=== PATIENT | female | born 1965 | race Hispanic/Latino ===

== ENCOUNTER 2019-09-28 13:06 | Emergency (ER) | payer OTHER, SELFPAY ==
--- NOTE | ~2019-09-28 | CT_ITS ---
EXAMINATION: CTA chest PE protocol DATE: 09/28/2019 15:48 CDT INDICATION: Chest pain TECHNIQUE: Computed tomographic angiography (CTA) of the chest was performed with 100 mL Omnipaque-35 0 intravenous contrast. The dose-length product was 223.66 mGy-cm. Maximum intensity projection 3D-re constructions of the aorta and other arteries were constructed by the technologist on a separate work station. Automated exposure control and iterative reconstruction technique were employed. COMPARISON: Chest dated 09/28/2019 FINDINGS: Study technically limited by timing of contrast bolus and significant motion artifact for e valuation of segmental and subsegmental pulmonary arteries. No large central pulmonary embolism is id entified. No significant pleural or pericardial effusion. Heart size normal. No thoracic lymphadenopa thy. Small subcentimeter hypodensity right hepatic lobe, most likely benign. There is dependent atele ctasis. No endobronchial lesions. Calcified granuloma right upper lobe. No focal airspace consolidati on to suggest pneumonia. No noncalcified pulmonary nodules identified. IMPRESSION: 1. No large central pulmonary embolism. Study is technically limited for evaluation of segmental and subsegmental pulmonary arteries. 2: No acute cardiopulmonary disease. Reviewed, dictated and finalized at location A. IMPRESSION: 1. No large central pulmonary embolism. Study is technically limited for evalua tion of segmental and subsegmental pulmonary arteries. 2: No acute cardiopulmonary disease.
--- NOTE | ~2019-09-28 | XR_ITS ---
EXAMINATION: XR chest 1V portable DATE: 09/28/2019 13:26 INDICATION: Cough and shortness of breath. TECHNIQUE: A single frontal view of the chest was obtained. COMPARISON: Chest 2 views 06/16/2019 FINDINGS: A calcified right lung nodule is consistent with old granulomatous disease. No pleural effu viktor or pneumothorax. The heart size is normal. IMPRESSION: 1. No acute cardiopulmonary disease. Reviewed, dictated and finalized at location A.
[2019-09-28 13:10] VITALS: PULSE 92; RESP 20; TEMP 36.8
--- NOTE | 2019-09-28 13:14 | ECG_ITS ---
Measurements Intervals [place] Rate: 89 P: 38 TN: 140 QRS: -26 QRSD: 82 T: -12 QT: 360 QTc: 439 Interpretive Statements SINUS RHYTHM LOW QRS VOLTAGE IN PRECORDIAL LEADS VOLTAGE CRITERIA FOR LVH DELAYED PRECORDIAL R/S TRANSITION BORDERLINE T WAVE ABNORMALITY- INFERIOR LEADS BORDERLINE ECG Electronically Signed On 09-28-2019 13:32:50 CDT by Chad Warren D.O.
--- NOTE | 2019-09-28 13:23 | ED.CHESTPAIN ---
HPI - Chest Pain General Chief Complaint: Chest Pain Stated Complaint: Chest Pain Time Seen by Provider: 09/28/19 13:08 Source: RN notes reviewed History of Present Illness HPI narrative: Patient presents emergency department from home for chest pain. Patient states that she has been having lower midsternal chest pain throughout the day today. The pain is described as aching in nature. States associated with a cough that has been nonproductive that began 3 days ago. States pain is worse with cough and deep inspiration. Denies any fevers or chills shortness of breath abdominal pain nausea vomiting or any other symptoms. Denies any previous cardiac history Related Data Allergies Allergy/AdvReac Type Severity Reaction Status Date / Time No Known Allergies Allergy Verified 09/28/19 13:15 Review of Systems Review of Systems: Narrative: Gen.: Denies fevers or chills Eyes: Denies eye pain or visual change ENT: Denies congestion Respiratory: Denies shortness of breath reports cough CV: Reports chest pain GI: Denies abdominal pain nausea, emesis or diarrhea denies burning, urgency, frequency or hematuria Musculoskeletal: Denies back pain or muscle pain Neuro: Denies numbness, tingling, weakness or focal weakness Skin: Denies rash Except as documented, all other systems reviewed and negative [facility] Past Medical History Medical History No significant past medical history Surgical History Surgical History (Updated 08/08/19 @ 10:55 by Joi Zuniga) History of section History of tonsillectomy Social History Social History Smoking status: Never smoker Substance use: never Exam Narrative: Exam Narrative: APPEARANCE: No acute distress, nontoxic, resting in bed EYES: EOMI HEENT: Normocephalic, atraumatic, OMM RESPIRATORY: No respiratory distress Clear to auscultation bilaterally with no rhonchi wheezing or rales. CARDIOVASCULAR: Regular rate and rhythm without murmurs rubs or gallops. Chest: Tender palpation over the bilateral lower midsternal chest, pain increased with deep inspiration and coughing ABDOMINAL: Soft, nontender, nondistended, no rebound or guarding MUSCULOSKELETAl: Moves all extremities. No clubbing, cyanosis or edema. NEURO: Awake and alert. Following commands, speech normal, no focal deficits SKIN:: Warm, dry. No rashes lesions or abrasions PSYCHIATRIC: Normal affect/mood, Course Course Emergency Course: Patient states pain is improved following medication Discussed with patient results of workup and diagnosis. Discussed need for follow-up with primary care, proper use of medication, and reasons to return to the emergency department. Patient understands and agrees to current treatment plan. Discussed with patient she would like tested for COVID. Feel the patient is low risk as she has had no fever CT scan is negative will obtain treatment and patient self isolate at home Vital Signs Vital signs: Vital Signs Temperature 98.3 F 09/28/19 13:10 Pulse Rate 92 09/28/19 13:10 Respiratory Rate 20 09/28/19 13:10 Temperature 98.3 F 09/28/19 13:10 Pulse Rate 95 09/28/19 17:17 Respiratory Rate 18 09/28/19 17:17 Blood Pressure 111/72 09/28/19 17:17 Pulse Oximetry 99 09/28/19 15:25 MDM - Chest Pain MDM Narrative Medical decision making narrative: Patient's EKGs and labs are without significant high risk changes. Cardiac risk factors reviewed. Patient is felt likely low risk for ACS and reasonable for further risk stratification testing as an outpatient. Pain was not sudden or maximal in onset without tearing or ripping quality. No other signs of symptoms suggest aortic dissection. A low-risk Wells criteria is noted, PE is felt to be unlikely. No pneumonia seen on evaluation today. Patient is felt to be a reasonable candidate for continued evaluation as an outpat
[2019-09-28] MEDS: KETOROLAC 30 MG/ML VIAL (*BKC) IV PUSH (13:31)
[2019-09-28 14:02] LABS: Basophils Absolute Auto 0.1 K/mm3 (0.0-0.1); Eosinophils Absolute Auto 0.2 K/mm3 (0-0.3); Eosinophils Percent Auto 1.8 % (0-4.4); Hematocrit 41.6 % (37.0-47.0); Hemoglobin 13.6 g/dL (12.0-15.0); Immature Granulocyte Absolute 0.02 K/mm3 (0.00-0.031); Immature Granulocyte Percent A 0.2 % (0-0.5); Lymphocytes Absolute Auto 2.89 K/mm3 (0.9-3.2); Lymphocytes Percent Auto 35.2 % (18.3-44.2); Mean Corpuscular HGB Conc 32.7 g/dl (32-36); Mean Corpuscular Hemoglobin 29.6 pg (26-34); Mean Corpuscular Volume 90.6 fl (80-100); Mean Platelet Volume 10.7 fl (7.4-10.4); Monocytes Absolute Auto 0.7 K/mm3 (0.1-0.6); Monocytes Percent Auto 8.5 % (2.6-8.5); Neutrophils Absolute Auto 4.4 K/mm3 (1.3-6.7); Neutrophils Percent Auto 53.3 % (45.5-73.1); Platelet Count Result 332 k/mm3 (150-375); Red Blood Count 4.59 M/mm3 (4.2-5.4); Red Cell Distribution Width 12.6 % (11.5-14.5); White Blood Count 8.2 K/mm3 (4.5-10.0)
[2019-09-28 14:12] LABS: INR 0.9; Prothrombin Time 12.3 Seconds (11.1-14.7)
[2019-09-28 14:15] LABS: Alanine Aminotransferase 22 U/L (4-35); Albumin Level 4.6 g/dL (3.5-5.1); Alkaline Phosphatase 96 U/L (38-126); Aspartate Amino Transferase 25 U/L (14-36); Bilirubin,Total 0.5 mg/dL (0.2-1.3); Blood Urea Nitrogen 12 mg/dL (7-17); Calcium 9.1 mg/dL (8.4-10.2); Carbon Dioxide 27 mmol/L (22-30); Chloride 103 mmol/L (98-107); Estimated CRCL calculation 92 ml/min; Estimated Glomerular Filt Rate > 60; Glucose 96 mg/dL (65-105); Lactic Acid Reflex 1.3 mmol/L (0.7-2.1); Sodium 137 mmol/L (137-145)
[2019-09-28 14:27] LABS: D Dimer 0.27 ug/mL (<0.48); Troponin I < 0.012 ng/mL (0.000-0.034)
[2019-09-28] MEDS: methylPREDNISolone SOD SUCC 125 MG VIAL IV PUSH (14:39)
[2019-09-28] MEDS: ALBUTEROL SULFATE NEB 2.5 MG/0.5 ML INH 5 MG INHALATION (14:51)
[2019-09-28 14:52] VITALS: PULSE 74; RESP 15
[2019-09-28] MEDS: IPRATROPIUM BR 0.02% INH SOLN 0.5 MG/2.5 ML VIAL INHALATION (14:52)
[2019-09-28 14:57] VITALS: PULSE 81; RESP 18
[2019-09-28] MEDS: MORPHINE SULFATE 2 MG/ML INJ IV PUSH (15:24)
[2019-09-28 15:25] VITALS: BP 114/73; PULSE 87; RESP 20; O2SAT 99
[2019-09-28 17:03] LABS: Troponin I < 0.012 ng/mL (0.000-0.034)
[2019-09-28 17:17] VITALS: BP 111/72; PULSE 95; RESP 18
[2019-09-29 08:04] LABS: SARS-CoV-2 RNA PCR Negative
== END 2019-09-28 17:20 | disposition home or self-care (01) ==
PROVIDERS: Emergency Provider Emergency Medicine; PCP Registered Nurse
DX: R07.89 Other chest pain (principal); J06.9 Acute upper respiratory infection, unspecified; Z20.828 Contact with and (suspected) exposure to other viral communicable diseases; R94.31 Abnormal electrocardiogram [ECG] [EKG]
CPT/HCPCS: 36415; 71045; 71275; 80053; 83605; 84484; 85025; 85380; 85610; 85730; 87040; 87635; 87804; 93005; 94640; 96374; 96375; 99284; A9270; C9803; J1885; J2270; J2930; Q9967; U0003

== ENCOUNTER 2020-03-31 12:26 | Emergency (ER) | payer OTHER, SELFPAY ==
[2020-03-31] VITALS (8 sets, daily range): BP systolic 112–122; BP diastolic 81–105; PULSE 72–85; RESP 12–20; TEMP 36.3; O2SAT 96–100
--- NOTE | ~2020-03-31 | XR_ITS ---
EXAMINATION: XR knee RT 3V DATE: 03/31/2020 13:21 INDICATION: Right knee pain TECHNIQUE: Three views of the right knee were obtained. COMPARISON: None. FINDINGS: Alignment is normal. No fracture or osteochondral lesion. Mild irregularity at the tibial s pine is likely chronic given the absence of a joint effusion. There is mild tricompartmental osteoart hritis characterized by tiny marginal osteophytes. There is mild medial soft tissue swelling of the k nee. IMPRESSION: 1. No acute osseous abnormality. Reviewed, dictated and finalized at location A. SCAN TECHNICIAN
[2020-03-31] MEDS: HYDROcodone/acetaminophen (*CRX) 7.5-325 MG TABLET 1 TAB PO (12:59)
--- NOTE | 2020-03-31 13:00 | ED.GENADULT ---
HPI - General Adult General Chief complaint: Extremity Injury, Lower <Richie Hart PA-C - Last Filed: 03/31/20 14:04> Stated complaint: Fall, possible knee dislocation <Richie Hart PA-C - Last Filed: 03/31/20 14:04> Time Seen by Provider: 03/31/20 12:31 <Richie Hart PA-C - Last Filed: 03/31/20 14:04> Source: patient and family <Richie Hart PA-C - Last Filed: 03/31/20 14:04> Mode of arrival: ambulatory <Richie Hart PA-C - Last Filed: 03/31/20 14:04> Limitations: no limitations <Richie Hart PA-C - Last Filed: 03/31/20 14:04> History of Present Illness HPI narrative: Patient is a 54-year-old female who presents with right knee injury patient was getting into a truck when she fell onto the right knee has since had swelling and pain of the knee with inability to bear weight patient denies similar occurrence in the past or other injuries or complaints presents per private <Richie Hart PA-C - Last Filed: 03/31/20 14:04> Related Data Allergies/adverse reactions: Allergies Allergy/AdvReac Type Severity Reaction Status Date / Time No Known Allergies Allergy Verified 09/28/19 13:15 <Richie Hart PA-C - Last Filed: 03/31/20 14:04> [facility] Past Medical History Medical History: Medical History (Updated 03/31/20 @ 14:03 by Richie Hart PA-C) No significant past medical history <Richie Hart PA-C - Last Filed: 03/31/20 14:04> Surgical History Surgical History: Surgical History (Updated 08/08/19 @ 10:55 by Joi Zuniga) History of section History of tonsillectomy <Richie Hart PA-C - Last Filed: 03/31/20 14:04> Social History Social History: Social History Smoking status: Never smoker Substance use: never <MARY LOU Vizcaino Last Filed: 03/31/20 14:04> Course Course Emergency Course: Patient in the room at this time aware of case findings treatment plan and diagnosis will follow with orthopedic surgery placed in Mahesh wrap knee immobilizer and given crutches patient will follow with orthopedic surgery and was given reasons to return and agrees with this plan and feels comfortable going home <Richie Hart PA-C - Last Filed: 03/31/20 14:04> Vital Signs Vital signs: Vital Signs Pulse Rate 81 03/31/20 12:37 Respiratory Rate 20 03/31/20 12:37 Pulse Oximetry 100 03/31/20 12:37 Temperature 97.3 F L 03/31/20 12:50 Pulse Rate 77 03/31/20 13:16 Respiratory Rate 16 03/31/20 13:16 Blood Pressure 122/82 03/31/20 13:16 Pulse Oximetry 100 03/31/20 13:16 <Richie Hart PA-C - Last Filed: 03/31/20 14:04> Vital Signs Pulse Rate 81 03/31/20 12:37 Respiratory Rate 20 03/31/20 12:37 Pulse Oximetry 100 03/31/20 12:37 Temperature 97.3 F L 03/31/20 12:50 Pulse Rate 77 03/31/20 13:16 Respiratory Rate 16 03/31/20 13:16 Blood Pressure 122/82 03/31/20 13:16 Pulse Oximetry 100 03/31/20 13:16 <Leidy Soni MD - Last Filed: 03/31/20 18:54> Medical Decision Making MDM Narrative Medical decision making narrative: Patients injury or pain is consistent with musculoskeletal etiology. No signs of neurological or vascular compromise on exam. Compartments and tisues are soft without signs of compartment syndrome. Pain is felt appropriate for further evaluation on an outpatient basis. Patient with likely internal derangement of the right knee referred to orthopedics <Richie Hart PA-C - Last Filed: 03/31/20 14:04> Vital Signs Vital Signs: Vital Signs Pulse Rate 81 03/31/20 12:37 Respiratory Rate 20 03/31/20 12:37 Pulse Oximetry 100 03/31/20 12:37 Temperature 97.3 F L 03/31/20 12:50 Pulse Rate 77 03/31/20 13:16 Respiratory Rate 16 03/31/20 13:16 Blood Pressure 122/82 03/31/20 13:16 Pulse Oximetry 100 03/31/20 13:1
== END 2020-03-31 14:25 | disposition home or self-care (01) ==
PROVIDERS: Emergency Provider General Practice; PCP Registered Nurse
DX: S83.206A Unspecified tear of unspecified meniscus, current injury, right knee, initial encounter (principal); W17.89XA Other fall from one level to another, initial encounter
CPT/HCPCS: 73562; 99283; A9270

== ENCOUNTER 2020-04-14 13:38 | Outpatient (CLI) | payer OTHER, SELFPAY ==
--- NOTE | ~2020-04-14 | MR_ITS ---
EXAMINATION: MR knee RT wo con DATE: 04/14/2020 14:37 INDICATION: Right knee pain. TECHNIQUE: Magnetic resonance imaging (MRI) of the right knee was performed without intravenous contr ast. Sequences included axial PD-weighted FS FSE, coronal PD-weighted FSE and PD-weighted FS FSE, sag ittal PD-weighted FSE, and sagittal T2-weighted FS FSE. COMPARISON: Right knee radiographs 04/11/2020, 03/31/2020 FINDINGS: Medial compartment: There is an undersurface horizontal tear of body and posterior horn of medial meniscus. There is cart ilage surface irregularity of tibial condyle and femoral condyle. There is mild subchondral edema-lik e marrow signal intensity of tibial condyle posteriorly consistent with contusion. Lateral compartment: Lateral meniscus is normal. There is cartilage surface irregularity of tibial condyle and femoral con dyle. There is a trabecular fracture of tibial condyle posteriorly with low signal fracture line and surrounding bone marrow edema. There is mild subchondral edema-like marrow signal intensity of femora l condyle at the notch, consistent with contusion. Patellofemoral compartment: There is full thickness cartilage loss of patellar median ridge and medial facet with mild subchondra l edema-like marrow signal intensity. There is partial-thickness cartilage loss of patellar lateral f acet. There is partial-thickness cartilage loss of trochlea. Ligaments and tendons: There is a complete tear of anterior cruciate ligament. Posterior cruciate ligament is intact. There is a partial tear of medial collateral ligament with surrounding edema. Lateral collateral ligament c omplex is normal. There is mild patellar tendinopathy. Fluid: There is a moderate-sized knee joint effusion. There are loose bodies in the intercondylar notch bett er seen on the radiographs. There is a small ruptured Allen's cyst. IMPRESSION: 1. Contusions of lateral femoral condyle and the posterior aspects of medial and lateral tibial condy les including a trabecular fracture of lateral tibial condyle. 2. Complete tear of anterior cruciate ligament. 3. Partial tear of medial collateral ligament. 4. Severe chondrosis of patellofemoral compartment and mild chondrosis of medial and lateral compartm ents. 5. Moderate-sized knee joint effusion with loose bodies. 6. Small ruptured Allen's cyst. Reviewed, dictated and finalized at location A. L STENOGRAPHER IMPRESSION: 1. Contusions of lateral femoral condyle and the posterior aspects of medial an d lateral tibial condyles including a trabecular fracture of lateral tibial con dyle. 2. Complete tear of anterior cruciate ligament. 3. Partial tear of medial collateral ligament. 4. Severe chondrosis of patellofemoral compartment and mild chondrosis of media l and lateral compartments. 5. Moderate-sized knee joint effusion with loose bodies. 6. Small ruptured Allen's cyst.
== END 2020-04-14 13:39 | disposition home or self-care (01) ==
PROVIDERS: PCP Registered Nurse; Visit Provider Orthopaedic Surgery
DX: S83.241A Other tear of medial meniscus, current injury, right knee, initial encounter (principal); S82.121A Displaced fracture of lateral condyle of right tibia, initial encounter for closed fracture; S83.511A Sprain of anterior cruciate ligament of right knee, initial encounter; S83.411A Sprain of medial collateral ligament of right knee, initial encounter; M66.0 Rupture of popliteal cyst; M23.41 Loose body in knee, right knee; M25.461 Effusion, right knee
CPT/HCPCS: 73721

== ENCOUNTER 2020-06-17 16:00 | Outpatient (RCR) | payer OTHER, SELFPAY ==
--- NOTE | 2020-05-29 14:09 | PTOPEVAL ---
PHYSICAL THERAPY EVALUATION AND PLAN OF CARE Thank you for referring Jessica Streeter to [facility].? The patient is scheduled to be seen for therapy? 2x/week for 4 weeks. Please review, sign, date and return this plan of care NANCY. I agree with and certify that the following plan of care is medically necessary. Referring Physician Date Attending Provider: Kash Lai MD Evaluation Diagnosis displaced bicondylar fracture of right tibia Onset 03/31/2020 Subjective Information Reports that she fell with a Query Text:As Reported By Patient/ big step down trying to get Family into her truck. She states she never hit her knee. She ambulates into clinic using a single crutch. Sees physician on 06/11/2020. 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 Sleeping is so-so with some occasional sharp pains in the right knee. Right Knee(s) Reported Pain Level 3 Radicular Pain Location pinching Pain Frequency Chronic,Intermittent Greatest Pain Intensity 5 Pain Score Pain Score 3: Self Report Interventions Used Interventions Used By Clinicians Exercise,Heat Lower Extremity Range of Motion Knee Range of Motion Right Knee Flexion Range of Motion - Active 109 Knee Flexion Range of Motion - Passive 119 Knee Extension Range of Motion - Active 0 Query Text: Knee Range of Motion Comments increased ROM after patellar mobilizations Lower Extremity Muscle Strength Testing Hip Strength Right Hip Flexion Strength 4+ Good + Hip Extension Strength 4 Good Hip Abduction Strength 4 Good Knee Strength Right Knee Flexion Strength 4+ Good + Knee Extension Strength 4- Good - Palpation Assessment Palpation Palpation crepitus noted with patellar mobilizations Gait Assessment Gait Assessment Ambulation Assistive Devices Crutches Weight Bearing Status - Left Full Weight Bearing Status - Right As Tolerated Maintains Weight Bearing Status Yes Ambulation Distance throughout gym Query Text:(Feet) Ambulation Ability Independent Additional Ambulation Comments uses unilateral crutch; corrected size of crutch to improve fit for patient and corrected technique to walk with crutch in contralateral hand to affected lo
--- NOTE | 2020-06-10 10:15 | PCPTNOTE ---
Patient did not show up for scheduled appointment this date; called and left voicemail for reminder on next appointment 06/12 @9AM
--- NOTE | 2020-06-17 16:28 | PTOPEVAL ---
PHYSICAL THERAPY DISCHARGE NOTE Thank you for referring Jessica Streeter to [facility]. Based on today's findings and positive physician's visit, I recommend d/c from PT at this time. Please review, sign, date and return this plan of care NANCY. I agree with and certify that the following plan of care is medically necessary. Referring Physician Date Attending Provider: Kash Lai MD Discharge Diagnosis displaced bicondylar fracture of right tibia Onset 03/31/2020 Subjective Information Reports she went back to work Query Text:As Reported By Patient/ today and is now very sore Family from being on her feet on all day. She states that before work started and this morning she felt really good but is now very tired and sore. Self Report Pain Assessment Right Knee(s) Reported Pain Level 4 Pain Frequency Chronic,Intermittent Pain Score Pain Score 4: Self Report Interventions Used Interventions Used By Clinicians Exercise,Ice Lower Extremity Range of Motion Knee Range of Motion Right Knee Flexion Range of Motion - Active 125 Knee Extension Range of Motion - Active 0 Query Text: Knee Range of Motion Comments increased ROM after patellar mobilizations Lower Extremity Muscle Strength Testing Hip Strength Right Hip Flexion Strength 5 Normal Hip Extension Strength 4 Good Hip Abduction Strength 5 Normal Knee Strength Right Knee Flexion Strength 5 Normal Knee Extension Strength 5 Normal Balance Assessment 5 Time Sit to Stand Time in Seconds 12.5 Gait Assessment Gait Assessment Ambulation Assistive Devices None Weight Bearing Status - Left Full Weight Bearing Status - Right Full Maintains Weight Bearing Status Yes Ambulation Ability Independent Additional Ambulation Comments no AD; when Jessica walks around the track, her gait pattern normalizes, but she will start to perform antalgic gait with short distance walking 2 Minute Walk Total Distance Walked (feet) 399 2 Minute Walk Gait Speed Score (feet/ 3.32 second) Stair Climbing Assessment Stair Climbing Assessment Stair Climbing Assistive Devices None Weight Bearing Status - Left Full Weight Bearing Status - Right Full Maintains Weight Bearing Status Yes Number of Steps Climbed (Steps) 4 Number of Repetitions (Repetitions) 2 Technique Alternating Steps S
== END 2020-06-18 10:18 | disposition home or self-care (01) ==
LOC: ANHPT 16:00
PROVIDERS: PCP Registered Nurse; Visit Provider Orthopaedic Surgery
DX: S82.141D Displaced bicondylar fracture of right tibia, subsequent encounter for closed fracture with routine healing (principal)
CPT/HCPCS: 97110; 97161

== ENCOUNTER → 2020-11-11 02:51 | Outpatient (CLI) | payer OTHER, SELFPAY ==
[2020-11-11 17:43] LABS: SARS-CoV-2 RNA PCR Negative
== END ==
PROVIDERS: PCP Physician Assistant; Visit Provider Orthopaedic Surgery
DX: Z01.812 Encounter for preprocedural laboratory examination (principal); Z20.822 Contact with and (suspected) exposure to COVID-19
CPT/HCPCS: C9803; U0003; U0005

== ENCOUNTER 2020-11-14 01:47 | Day surgery (SDC) | payer OTHER, SELFPAY ==
--- NOTE | 2020-11-13 10:01 | WPDANESEPPF ---
Anes - Initial Pre Proc Eval Procedure: Operation Date: 11/14/20 08:45 Proposed Procedures p Right Anterior Cruciate Ligament Reconstruction, Medial Meniscectomy,Loose Body Removal of The Right Knee - Jordi Alexander MD Date/Time: 11/13/20 10:01 Surgeon: Jordi Alexander MD Pre Op Diagnosis: right tear acl medial meniscus Patient Data Age: 55 Gender: F Height: 1.6 m Weight: 66 kg Allergies Allergy/AdvReac Type Severity Reaction Status Date / Time No Known Allergies Allergy Verified 11/14/20 07:31 Home Medications Medication Instructions Recorded Confirmed Type pantoprazole 40 mg PO QAM PRN 11/08/20 11/08/20 History Patient hx anesthesia problems: none Family hx anesthesia problems: none PMFSH Past Medical History Medical History Fracture of right tibial plateau No significant past medical history Surgical History Surgical History History of section History of tonsillectomy Family History Family History Father Hypertension Diabetes mellitus Kidney disease Social History Social History Smoking status: Never smoker Alcohol intake: current Substance use: never Substance use type: does not use Living arrangements: with family Gender identity (if verbalized by the patient): Female Sexual Orientation (if Verbalized by the Patient): Straight or Heterosexual Spiritual care concerns: No Anes - Eval Final PreProcedure Day of Procedure 11/13/20 10:01 Patient weight: overweight Heart: regular rate and rhythm Lungs: clear to auscultation and normal air movement Airway: Mallampati scale class II Neurological: alert and oriented Last oral intake: >/= 8 hours ASA classification: I Emergent: no Anesthetic plan: proceed Anesthesia type and monitoring: general LMA Informed Consent: The patient's anesthetic plan and its attendant risks and benefits were discussed with the patient/family/POA. Questions were solicited and answers provided to the satisfaction of the patient/family/POA.
[2020-11-14] VITALS (12 sets, daily range): BP systolic 94–117; BP diastolic 66–81; PULSE 70–91; RESP 12–20; TEMP 36.5; O2SAT 95–100
--- NOTE | 2020-11-14 07:11 | WPDHPUPDATE1 ---
History and Physical Update Update Date/Time: 11/14/20 07:11 History and Physical has been reviewed, including an updated exam of the patient. There are NO changes in the patient's condition. Risks, benefits, and alternatives have been discussed and questions answered. Patient agrees to proceed with procedure.
[2020-11-14] MEDS: ACETAMINOPHEN 500 MG TABLET 1000 MG PO (07:15)
[2020-11-14] MEDS: KETOROLAC 15 MG/ML VIAL (*BKC) IV PUSH (07:19)
[2020-11-14] MEDS: LACTATED RINGERS 1,000 ML 30 ML IV CONT ×2 (07:26→11:53)
--- NOTE | 2020-11-14 08:32 | WPDANESPNB ---
Anes - Peripheral Nerve Block Date/Time: 11/14/20 08:32 I have discussed with the patient/family/POA the placement of a peripheral nerve block for post-operative pain management, including associated risks, benefits, complications, and side effects. Alternative methods of post-operative analgesia were detailed. Questions were solicited and answers provided to the satisfaction of the patient/family/POA. Time-Out: A pre-procedural Time-Out was completed immediately before starting the procedure and confirmed: Patient Identification, Site, Procedure, Patient Position and the Availability of Requisite Equipment. Clinical Indications: Acute post-operative pain management requested by the operative surgeon. Nerve Block Insertion Note Anes-nerve block: adductor canal right Patient position: supine Skin prep: chlorhexidine Needle: 22 gauge, stimulating, insulated echogenic needle. Needle length: 80 mm Technique: ultrasound Technique comment: in plane Injectate: bupivacaine 0.5% with epi 5 mcg/ml (30cc) Observations: tolerated well Complications: none Procedure start time:: 840 Procedure end time:: 845
[2020-11-14] MEDS: ceFAZolin 2 GM/D5W 50 ML 2 GM/50 ML BAG IVPB (08:54)
[2020-11-14] MEDS: BUPIVACAINE/EPINEPHRINE 0.5% 10 ML VIAL 30 ML INFILTRATE (09:45)
[2020-11-14] MEDS: fentaNYL CITRATE INJ (*CRX) 100 MCG/2 ML VIAL 25 MCG IV PUSH ×6 (12:14→12:54)
--- NOTE | 2020-11-14 12:16 | W.PM.PROC2 ---
Procedure Note - Detailed Date of Procedure 11/14/20 Pre-op Diagnosis 1. Right knee ACL tear 2. Right knee medial meniscus tear Post-op Diagnosis same Procedure Performed 1. Arthroscopic ACL reconstruction with patellar tendon allograft 2. Medial meniscus repair Surgeon Jordi Alexander MD Outreach And Education Social Worker Mami Daily PA-C Anesthesia general and regional Indications The patient complained of persistent instability affecting daily activities of living. MRI confirmed ACL tear with posterior horn medial meniscus tear. Also MCL tear. Findings Complete deficiency rupture of the ACL. Calcification of the ligament corresponded to the opacity at the notch on radiographs. Vertical undersurface tear of the posterior horn medial meniscus. Tear of the intermeniscal ligament which was displaced in the notch. Description of Procedure Physician admissions assistant, Mami Daily PA-C, required for surgery; including patient positioning, draping, arthroscopic cameral operation, tissue retraction, maintaining instrument position, preliminary graft preparation, seating of the graft, wound closure, and dressing placement. The patient was given preoperative antibiotics prior to going to the operating room. A general anesthetic was administered. Examination under anesthesia was performed. The leg was prepped and draped in the usual sterile fashion after placing the leg in the arthroscopic leg marks. Standard inferomedial, inferolateral and superior-medial arthroscopic portals were established. In flow was obtained with the saline pump. The residual ACL tissue was debrided with the arthroscopic shaver and the radioablation probe. Minimal notchplasty was performed as needed. The menisci were carefully inspected. The posterior horn of the medial meniscus was amenable to repair. The tear was at the meniscocapsular junction. Two horizontal mattress sutures were applied on the superior meniscal surface. The allograft was fashioned on the back table at this point. 10 mm grafts were obtain at between approximately 23 mm in length. Graft quality was excellent. Attention was then turned back to the knee. The limb was exsanguinated and the tourniquet reinflated to 300 millimeters of mercury. The drill guide was placed at the [place] ACL footprint on the femur. An anatomic location was chosen, and confirmation of safe placement with the over the top guide. The 7 mm guide was used. The flexible guide wire was drilled out of the lateral thigh anterior to midline. The flexible reamer was used to drill the tunnel for the femoral graft. A suture was placed through the pin and brought out through the thigh. The ACL guide was used at this time to drill a guide pin for the tibial tunnel. A separate small incision was utilized at the medial tibia. This was reamed with the strait reamer. The tibia guide was set at 55?. Typical anatomic landmarks were used for the tibial footprint. The lateral meniscus was utilized, and the location placed anatomically. The graft was then fed through the tibial tunnel into the femur. The graft was carefully positioned with the bone block anteriorly on the femur. A small notch was created to accept the screw. The nitinol wire was placed and the 7 x 20 millimeter interference screw was placed with excellent purchase. The graft was cycled. The tibia bone block was secured with the knee at 30? of flexion and slight posterior drawer was applied. The distal screw was placed similarly over the nitinol wire. An 9 x 25 millimeter titanium screw was used. Fixation was good. A supplemental suture anchor was placed with the bone block sutures, to support the tibial bone block. Care was taken to assure that there was no impingement of the graft. The arthroscopic instruments were removed. The tourniquet was released. The wounds were closed with interrupted 4-0 Monocryl suture followed by Steri-Strips. The deeper tissues on the tibia side were closed with 2-0
[2020-11-14] MEDS: HYDROmorphone HCL INJ (*CRX) 1 MG/ML SYR 0.25 MG IV PUSH ×4 (12:57→13:12)
[2020-11-14] MEDS: oxyCODONE HCL (*CRX) 5 MG TAB IR PO (14:12)
== END 2020-11-14 14:31 | disposition home or self-care (01) ==
PROVIDERS: PCP Physician Assistant; Visit Provider Orthopaedic Surgery
PROC: (CPT 29888; principal; 2020-11-14 08:45)
DX: S83.511A Sprain of anterior cruciate ligament of right knee, initial encounter (principal); S83.241A Other tear of medial meniscus, current injury, right knee, initial encounter; G89.18 Other acute postprocedural pain; X50.0XXA Overexertion from strenuous movement or load, initial encounter
CPT/HCPCS: 29882; 29888; 64447; A9270; C1713; C9803; J0690; J1100; J1170; J1885; J2250; J2370; J2405; J2704; J3010; J7120; L1830; U0003; U0005

== ENCOUNTER 2021-01-27 09:00 | Outpatient (RCR) | payer OTHER, SELFPAY ==
--- NOTE | 2020-11-18 09:09 | PTOPEVAL ---
PHYSICAL THERAPY EVALUATION AND PLAN OF CARE 11-18-20 Thank you for referring Jessica Streeter to [facility].? She is scheduled to be seen for therapy? 2-3 x/week for 5 weeks. Please review, sign, date and return this plan of care NANCY. I agree with and certify that the following plan of care is medically necessary. Referring Physician Date Attending Provider: Jordi Alexander MD *PT Outpatient Evaluation Start: 11/18/20 08:14 Document 11/18/20 08:05 PARK (Rec: 11/18/20 09:09 PARK [id number]) Outpatient Past Medical History Past Medical History Source of Past Medical History Recalled from Previous Visit, Confirmed with Patient/Family Neurological History Hx Neurological Disorders No Significant History Cardiovascular History Hx Cardiac Disorders No Significant History Respiratory History Hx Respiratory Disorders No Significant History Gastrointestinal History Hx Gastrointestinal Disorders No Significant History Genitourinary History Hx Genitourinary Disorders No Significant History Musculoskeletal History Hx Orthopedic Surgery Yes: this admission, R ACL reconstruction and partial medial menisectomy Hx Other Musculoskeletal Disorders Yes: R tibial plateau fracture - non surgical ' Hematological History Hx Hematological Disorders No Significant History Endocrine History Hx Endocrine Disorders No Significant History HEENT History Hx Tonsillectomy Yes Integumentary History Hx Skin Disorders No Significant History Reproductive History Hx Section Yes Hx Post Menopausal Yes Psychosocial History Hx Psychiatric Disorders No Significant History Pain History History of Any Previous or Ongoing No Significant History Instance of Pain Anesthesia History Hx Anesthesia Reactions No Significant History Other History Hx Other Medical Conditions Yes: have had COVID vaccine Evaluation Information Problem Diagnosis s/p R ACL reconstruction and partial medial menisectomy Onset 11-14-20 Subjective Information fall in Mar 2020- knee pain Query Text:As Reported By Patient/ since then; since surgery, at Family home, resting using crutches; keeping knee immoblizer on and have not taken off dressing; Prior Level of Function Activity Level (Last 3 Months) 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
--- NOTE | 2020-11-18 13:50 | PCPTNOTE ---
during evaluation, pt and report they may be going out of town, due to pt's fathers health is not good. Stated They will call to make appointments for therapy when they are back in town. reinforced importance of therapy post op and need to do exercises for ROM of knee. They voiced understanding of this.
--- NOTE | 2020-12-05 16:16 | PCPTNOTE ---
Increased time between treatment sessions due to limited availability of pt to attend therapy. She was offered treatment times on November 28 and December 03, but she was not able to be here at these times.
--- NOTE | 2020-12-11 14:33 | PCPTNOTE ---
pt canceled appt for 7-[address] appt for her throat; she did not want to reschedule for another date;
--- NOTE | 2020-12-19 15:59 | PCPTNOTE ---
pt called and canceled tomorrow's appointment;
--- NOTE | 2020-12-23 09:42 | PTOPEVAL ---
PHYSICAL THERAPY REEVALUATION AND UPDATED PLAN OF CARE 12-23-20 Refer to the clinical summary below, for her status today, compared to the initial evaluation. Continue PT treatment 2x/week for 5 weeks. Thank you for referring Jessica Streeter to [facility] [place].? Please review, sign, date and return this updated plan of care [facility]. I agree with and certify that the following plan of care is medically necessary. Referring Physician Date Attending Provider: Jordi Alexander MD Document 12/23/20 09:10 PARK (Rec: 12/23/20 09:42 PARK [id number]) Assessment Status Re-evaluation Subjective Information [place] reports: knee is doing Query Text:As Reported By Patient/ better, still swollen; using Family knee brace when walklng outside- -yard not even and use for safety; using one crutch most of the time; is doing her exercises, even though they hurt her knee; Pain Assessment Timing of Pain Assessment Timing of Pain Assessment Assessment Pain Scale Pain Scale Used Numeric (1 - 10) Self Report Pain Assessment Right Knee(s) Reported Pain Level 5 Pain Description Aching Pain Frequency Chronic,Continuous Lowest Pain Intensity 3 Greatest Pain Intensity 9 Pain Aggravating Factors Exercise/Activity,Walking, Weight Bearing/Standing Pain Behaviors Anxious,Grimacing,Guarding Pain Score Pain Score 5: Self Report Interventions Used Interventions Used By Clinicians Electrical Stimulation, Exercise,Ice Pain Relief Interventions Used By Elevation,Ice,Medication Patient Other Alleviating Interventions taking oxycodone 1-2x/day; Lower Extremity Range of Motion General Lower Extremity Range of Motion Gross Lower Extremity Range of Motion R knee active ROM: flexion Comments 120' / extension in supine (-3 ') Lower Extremity Muscle Strength Testing General Lower Extremity Strength Gross Lower Extremity Strength functional strength R LE: single leg standing- unable to tolerate due to increase in knee pain supine SLR x 15 reps- stop due to anterior hip pain side lying hip abduction x 15 reps prone hip extension x 10 reps and knee flexion x 5 reps - report pain and pop in knee Palpation Assessment Palpation Palpation
--- NOTE | 2021-01-06 17:53 | PCPTNOTE ---
On treatment date 01/01/21 patient was charged for 3 units of exercises, will need to only be charged for 2 units of exercise for 30 minutes. Note will need to reflect this change.
--- NOTE | 2021-01-15 15:22 | PCPTNOTE ---
Patient called & cancelled scheduled appointment this date due to not feeling well.
--- NOTE | 2021-01-20 11:49 | PCPTNOTE ---
Patient did not show up for scheduled appointment this date; left voicemail for reminder call on next appointment 01/22 @11am
--- NOTE | 2021-01-27 09:38 | PTOPEVAL ---
PHYSICAL THERAPY DISCHARGE 01-27-21 Refer to the clinical summary below, for her status today, compared to the last reeval; she has improved in all areas. Discharge PT services at this time. Mrs. Burdick is to continue with her home exercises and increase her activity level with standing/walking activity. Thank you for referring Jessica Streeter to [facility].? Please review, sign, date and return this Discharge report NANCY. I agree with and certify that the following plan of care is medically necessary. Referring Physician Date Attending Provider: Jordi Alexander MD Document 01/27/21 09:00 PARK (Rec: 01/27/21 09:38 PARK [id number]) Assessment Status Discharge Subjective Information Jessica reports: saw dr last Query Text:As Reported By Patient/ week, continue to be off work Family until see him again in Jan; not using cane or crutches anymore; feeling better and knee is better; doing exercises at home; is doing all of her usual home things, family not helping her anymore ; Pain Assessment Timing of Pain Assessment Timing of Pain Assessment Assessment Pain Scale Pain Scale Used Numeric (1 - 10) Self Report Pain Assessment Right Knee(s) Reported Pain Level 0 Pain Description Sharp,Tightness Pain Frequency Acute,Intermittent Other Pain Description pop in knee; medial knee sharp at times; Lowest Pain Intensity 0 Greatest Pain Intensity 7 Pain Aggravating Factors Exercise/Activity,Walking, Weight Bearing/Standing Other Pain Aggravating Factors stand/walk tolerance reported 3-4 hours; Pain Score Pain Score 0: Self Report Additional Pain Score Comments sometimes hips sore when do leg exercises; Interventions Used Interventions Used By Clinicians Education,Exercise Pain Relief Interventions Used By Elevation,Ice,Inactivity/Rest, Patient TENS Other Alleviating Interventions taking pain med/ over the counter at night; has home TENS unit Lower Extremity Range of Motion General Lower Extremity Range of Motion Gross Lower Extremity Range of Motion sitting active ROM R knee 0'- Comments 130' no pain reported Lower Extremity Muscle Strength Testing General Lower Extremity Strength Gross Lower Extremity Strength functional strength: B UE lift box 20#, waist/waist height, simulated job tasks, 10 rep
== END 2021-01-27 11:40 | disposition home or self-care (01) ==
LOC: ANHPT 09:00
PROVIDERS: PCP Physician Assistant; Visit Provider Orthopaedic Surgery
DX: Z48.89 Encounter for other specified surgical aftercare (principal)
CPT/HCPCS: 97014; 97110; 97116; 97140; 97161; G0283

== ENCOUNTER → 2021-06-27 07:52 | Outpatient (CLI) | payer OTHER, SELFPAY ==
[2021-06-27 18:24] LABS: SARS-CoV-2 RNA PCR Negative
== END ==
PROVIDERS: PCP Physician Assistant; Visit Provider Physician Assistant
DX: R05.9 Cough, unspecified (principal); Z20.822 Contact with and (suspected) exposure to COVID-19
CPT/HCPCS: C9803; U0003; U0005

== ENCOUNTER 2021-08-15 13:30 | Outpatient (CLI) | payer OTHER, SELFPAY ==
--- NOTE | ~2021-08-15 | XR_ITS ---
XR shoulder LT min 2V 08/15/2021 14:05 INDICATION: Left shoulder pain PROCEDURE: 4 views left shoulder COMPARISON: No prior studies for comparison. FINDINGS: Fracture, dislocation or subluxation is not identified. The soft tissues appear within norm al limits. No foreign bodies are identified. IMPRESSION: 1: NO ACUTE BONE OR JOINT ABNORMALITY IDENTIFIED. Reviewed, dictated and finalized at location B.
--- NOTE | ~2021-08-15 | XR_ITS ---
EXAMINATION: XR hand LT min 3V, XR wrist LT min 3V DATE: 08/15/2021 14:06 INDICATION: Left hand and wrist pain, swelling and bruising post fall TECHNIQUE: 1. Posteroanterior, ulnar deviation, oblique, and lateral views of the left wrist were obtained. 2. Dorsal palmar, oblique and lateral views of the left hand were obtained. COMPARISON: None. FINDINGS: Alignment of the left hand and wrist is normal. No fracture identified. Polyarticular osteoarthritis , moderate severity at the first carpometacarpal and first interphalangeal joints. Mild osteoarthriti s at the wrist, triscaphe and remaining interphalangeal joints with distal predominance. Likely degen erative cystic change at the triquetrum with central lucency with thin sclerotic margins. Soft tissue s are unremarkable. IMPRESSION: 1. Mild to moderate polyarticular osteoarthritis at the left hand and wrist. No acute osseous abnorma lity. Reviewed, dictated and finalized at location A. IMPRESSION: 1. Mild to moderate polyarticular osteoarthritis at the left hand and wrist. No acute osseous abnormality.
--- NOTE | ~2021-08-15 | XR_ITS ---
XR knee LT 3V 08/15/2021 14:06 Indication: Left knee pain Procedure: 3 views left knee Comparison: No prior studies Findings: No fracture, subluxation or dislocation. No significant joint effusion. No foreign bodies. Impression: 1: No significant bone or joint abnormality. Reviewed, dictated and finalized at location B. Impression: 1: No significant bone or joint abnormality.
--- NOTE | ~2021-08-15 | XR_ITS ---
EXAMINATION: XR elbow LT min 3V DATE: 08/15/2021 14:05 INDICATION: Left elbow pain and bruising post fall 3 weeks prior TECHNIQUE: Anteroposterior, two oblique and lateral views of the left elbow were obtained. COMPARISON: None. FINDINGS: Alignment is normal. No fracture or joint effusion. Osteoarthritis with mild nonuniform joint space n arrowing at the ulnotrochlear articulation. Small heterotopic ossicle at the medial epicondyle in the region of the origin of the common flexor tendon wad could represent sequela of chronic enthesopathy or trauma. Soft tissues are unremarkable. IMPRESSION: 1. Mild left elbow osteoarthritis. No joint effusion or acute osseous abnormality. Reviewed, dictated and finalized at location A. IMPRESSION: 1. Mild left elbow osteoarthritis. No joint effusion or acute osseous abnormali ty.
== END 2021-08-15 13:31 | disposition home or self-care (01) ==
LOC: ANHIMG 13:35
PROVIDERS: PCP Physician Assistant; Visit Provider Physician Assistant
DX: M25.532 Pain in left wrist (principal); M25.512 Pain in left shoulder; M25.562 Pain in left knee; M19.042 Primary osteoarthritis, left hand; M19.022 Primary osteoarthritis, left elbow
CPT/HCPCS: 73030; 73080; 73110; 73130; 73562

== ENCOUNTER 2022-01-19 15:55 | Outpatient (CLI) | payer OTHER, SELFPAY ==
--- NOTE | ~2022-01-19 | XR_ITS ---
EXAM: XR hand LT min 3V DATE: 01/19/2022 16:12 HISTORY: HAND JOINT PAIN . COMPARISON: None available. FINDINGS: Decreased mineralization. No fracture or dislocation. No lytic or blastic lesion. Moderate narrowing and sclerosis triscaphe and trapeziometacarpal joints. Mild osteoarthritic changes in the DIP and PIP joints of the fingers and thumb. No erosion or periosteal change. Soft tissues within nor mal limits. IMPRESSION: Moderate triscaphe and trapeziometacarpal arthritis. Mild osteoarthritic change in the th umb and fingers. Reviewed, dictated and finalized at location K. IMPRESSION: Moderate triscaphe and trapeziometacarpal arthritis. Mild osteoarth ritic change in the thumb and fingers.
== END 2022-01-19 15:56 | disposition home or self-care (01) ==
PROVIDERS: PCP Physician Assistant; Visit Provider Physician Assistant
DX: M19.042 Primary osteoarthritis, left hand (principal)
CPT/HCPCS: 73130

== ENCOUNTER 2022-09-01 15:19 | Outpatient (CLI) | payer OTHER, SELFPAY ==
--- NOTE | ~2022-09-01 | MR_ITS ---
EXAMINATION: MR knee RT wo con DATE: 09/01/2022 16:10 INDICATION: Right knee pain TECHNIQUE: Magnetic resonance imaging (MRI) of the right knee was performed without intravenous contr ast. Sequences included coronal PD-weighted FSE, coronal PD-weighted FS FSE, sagittal T2-weighted FS E, sagittal PD-weighted FS FSE and axial PD weighted fat saturated FSE. COMPARISON: 04/14/2020 FINDINGS: Medial compartment: New 10 x 4 x 3 mm possible para meniscal cyst along the periphery of the posterior horn of the medial meniscus but with normal-appearing meniscus without evident tear. Heart appears to have been a longi tudinal horizontal tear extending to the inferior articular surface of the posterior horn is not appr eciated in the current study. There is progression of moderate grade chondromalacia with partial thic kness chondral ulceration and deep fissuring along the anterior to central weightbearing medial femor al condyle. Suggestion of additional mild chondral fissuring at the medial tibial plateau along the p osterior margin of the anterior horn of the medial meniscus. Lateral compartment: Lateral meniscus is normal. Articular cartilage is normal. Patellofemoral compartment: Deep chondral ulceration along the patellar apical ridge and medial facet. Mild partial-thickness car tilage loss with smooth chondral surface along the lateral facet. New small central subchondral osteo phyte along the inferolateral margin of the medial trochlea at the site of prior deep chondral fissur ing. Ligaments and tendons: Anterior cruciate ligament reconstruction with intact appearing graft extending between interference screws at the femoral and tibial tunnels. Additional suture anchor site along the anteromedial margin of the proximal tibial metaphysis. The posterior cruciate ligament is normal. Minimal residual scarr ing at the site of the prior partial tear of the proximal medial collateral ligament. The collateral ligament complex is normal. The extensor mechanism is normal. The visualized medial and lateral hamst ring tendons as well as the iliotibial band are normal. Fluid: Physiologic amount of fluid in the joint space. No loose osteochondral bodies identified. 7.5 x 2.9 x 1.0 cm Allen's cyst. Osseous/other: The prior nondisplaced impaction fracture along the posterior margin of the lateral tibial plateau brady s healed as have the prior bone contusions at the lateral femoral condyle and posterior medial tibial plateau. Marrow signal is now normal with no new fracture or pathologic marrow replacing process. IMPRESSION: 1. Interval anterior cruciate ligament reconstruction with intact appearing graft. 2. The previously noted nodule horizontal tear at the posterior horn of the medial meniscus is no yuri alcides identified although there is a small likely para meniscal cyst along its posterior margin. Correl ate for interval meniscal repair or debridement. 3. Interval progression of moderate grade chondromalacia along the anterior weightbearing medial femo ral condyle. 4. Mild patellofemoral osteoarthritis with relatively stable appearance of moderate to high-grade cho ndromalacia aside from development of a new small central subchondral osteophyte at the inferolateral aspect of the medial trochlea. 5. Moderate-sized Allen's cyst. Reviewed, dictated and finalized at location A. IMPRESSION: 1. Interval anterior cruciate ligament reconstruction with intact appearing gra ft. 2. The previously noted nodule horizontal tear at the posterior horn of the med ial meniscus is no longer identified although there is a small likely para meni scal cyst along its posterior margin. Correlate for interval meniscal repair or debridement. 3. Interval progression of moderate grade
== END 2022-09-01 15:20 | disposition home or self-care (01) ==
PROVIDERS: PCP Physician Assistant; Visit Provider Orthopaedic Surgery
DX: S83.241A Other tear of medial meniscus, current injury, right knee, initial encounter (principal); X58.XXXA Exposure to other specified factors, initial encounter
CPT/HCPCS: 73721

== ENCOUNTER 2022-11-18 14:04 | Outpatient (CLI) | payer OTHER, SELFPAY ==
--- NOTE | 2022-11-18 14:36 | ECG_ITS ---
Measurements Intervals [place] Rate: 72 P: 16 WA: 138 QRS: -17 QRSD: 85 T: -6 QT: 387 QTc: 426 Interpretive Statements SINUS RHYTHM LOW QRS VOLTAGE IN PRECORDIAL LEADS [QRS DEFLECTION < 1.0 mV IN CHEST LEADS] MODERATE VOLTAGE CRITERIA FOR LVH, CONSIDER NORMAL VARIANT [MEETS CRITERIA IN ONE OF: R(aVL), S(V1), R(V5), R(V5/V6)+S(V1)] POOR R-WAVE PROGRESSION COMPARED TO ECG 09/28/2019 13:19:03 NO SIGNIFICANT CHANGES Electronically Signed On 11-18-2022 19:58:18 CDT by Rafaela Vyas M.D.
== END 2022-11-18 14:05 | disposition home or self-care (01) ==
LOC: ANHSURGERY 14:08
PROVIDERS: PCP Physician Assistant; Visit Provider Orthopaedic Surgery
DX: E78.00 Pure hypercholesterolemia, unspecified (principal); Z01.818 Encounter for other preprocedural examination
CPT/HCPCS: 93005

== ENCOUNTER 2022-11-20 01:12 | Day surgery (SDC) | payer OTHER, SELFPAY ==
[2022-11-13 15:22] VITALS: BMI 24.8
--- NOTE | 2022-11-13 15:28 | PC.NURSE ---
Addendum entered by Cathleen Juarez RN 11/17/22 12:36: PLEASE BRING YOUR ALBUTEROL INHALER WITH YOU DAY OF SURGERY. Original Note: Report to the Outpatient Waiting Room, entrance under the green pavilion located off [address], at time _1200_ on date _11/20/2022_. Planned Procedure Time: _2pm_. Time changes happen often and if your time is changed the preop area will call you the afternoon before. - You and your visitor will be asked to self-screen and do not enter if you have any COVID symptoms. - A mask is optional within the hospital at this time. Patients may have clear liquids (water, carbonated beverages, clear teas, apple juice) until 3 hours prior to surgery with a maximum of 20 ounces. - No food from midnight until time of surgery Take the following medications with a SIP of water the morning of surgery: ____None DO NOT STOP ANY OF YOUR OTHER PRESCRIPTION MEDICATIONS PRIOR TO SURGERY ?EXCEPT THE FOLLOWING Medications to discontinue per physician None Date to take last dose Please no make-up, nail nepali, hairspray, perfume, deodorant, or body powder the day of surgery. No jewelry (including any body piercings) or valuables the day of surgery, leave them at home. Please take a shower or bath the night before, or the morning of, surgery with an antibacterial soap. Wear comfortable, loose fitting clothing. - Jewelry must be removed prior to entering the operating room. Rings and piercings that are not removed may be cut off. - The hospital will not accept responsibility for valuables. - Please leave all valuables, including medications, at home the day of surgery. If you are going home after surgery, a licensed telephone directory distributor driver must drive you home. - NO public transportation without another adult if you receive anesthesia. - We recommend that an adult stay with you for 24 hours following discharge. - We also recommend that you do not drive, make important decision, drink alcoholic beverages, or take any drugs that were not prescribed by your health care provider for at least 24 hours after your discharge time. Follow any additional instructions given to you from your surgeon. If you or anyone in your household have experienced Covid symptoms in the past week, please notify your surgeon or the nurse liaison at the phone number below for possible testing. Telephone instructions given to _Patient____and asked if any additional questions and then verbalized understanding. Patient advised to call surgeon office or pre surgery nurse liaison [phone] if any additional questions.
--- NOTE | 2022-11-18 15:35 | PC.NURSE ---
0520 PATIENT CAME INTO PAT OFFICE TO SIGN CONSENT WITH ASSISTANCE OF REFRIGERATOR MOVER, CHRISTIANO, #[id number]. ENTIRE PRE-OP INSTRUCTION SHEET REVIEWED WITH PATIENT WITH ASSIST OF REFRIGERATOR MOVER ALSO. PT RELAYS UNDERSTANDING. PRE-OP TESTING TO BE COMPLETED IMMEDIATELY AFTER CONSENT SIGNING. FLAVIO PEREZ RN
[2022-11-20] VITALS (9 sets, daily range): BP systolic 101–122; BP diastolic 65–85; PULSE 74–89; RESP 12–74; TEMP 36.5–36.7; O2SAT 96–100
--- NOTE | ~2022-11-20 | XR_ITS ---
EXAMINATION: XR surgery orthopedic DATE: 11/20/2022 15:06 INDICATION: Orthopedic instrumentation removal at the right knee. TECHNIQUE: 3 fluoroscopic images of the right knee were obtained during procedure performed by Dr. Zoltan hubbard. Radiologist was not present for the imaging or procedure. The amount of fluoroscopy time us ed during this procedure was 0.3 minutes. COMPARISON: Right knee radiographs dated 08/24/2022 FINDINGS: Initial image redemonstrates interference screws at the distal femur and proximal tibia consistent wi th anterior cruciate ligament reconstruction. Final image demonstrates removal of the tibial interfer ence screw. No fractures identified. IMPRESSION: 1. Fluoroscopy utilized during removal of an interference screw at the tibial tunnel of a right knee anterior cruciate ligament reconstruction. Reviewed, dictated and finalized at location A. IMPRESSION: 1. Fluoroscopy utilized during removal of an interference screw at the tibial t unnel of a right knee anterior cruciate ligament reconstruction.
--- NOTE | 2022-11-20 08:36 | WPDANESEPPF ---
Anes - Initial Pre Proc Eval Procedure: Operation Date: 11/20/22 14:00 Proposed Procedures p Right Knee Arthroscopic Debridement, - Jordi Alexander MD s Removal Hardware Right Knee - Jordi Alexander MD Date/Time: 11/20/22 08:36 Surgeon: Jordi Alexander MD Pre Op Diagnosis: painful ortho hardware right knee Patient Data Age: 57 Gender: F Height: 1.6 m Weight: 63.6 kg Allergies Allergy/AdvReac Type Severity Reaction Status Date / Time No Known Allergies Allergy Verified 11/20/22 12:50 Home Medications Medication Instructions Recorded Confirmed Type acetaminophen 325 mg capsule 325 mg PO Q6H PRN Pain 08/24/22 11/20/22 History (Tylenol) albuterol sulfate 90 mcg/actuation 1 inh inhalation Q4H 08/24/22 11/20/22 History aerosol inhaler cholecalciferol (vitamin D3) 250 250 mcg PO WEEKLY 08/24/22 11/20/22 History mcg (10,000 unit) capsule atorvastatin 20 mg tablet 20 mg PO DAILY 11/13/22 11/20/22 History Patient hx anesthesia problems: none Family hx anesthesia problems: none Results Review: All pre-operative results and documents have been reviewed as part of the pre-operative evaluation. [facility] Past Medical History Medical History (Updated 11/20/22 @ 08:37 by Syd Starks MD) Dyslipidemia Fracture of right tibial plateau Mixed anxiety and depressive disorder No significant past medical history Surgical History Surgical History History of section History of lateral meniscus repair of right knee (~11/14/20) ACL reconstruction History of tonsillectomy Family History Family History Father Hypertension Diabetes mellitus Kidney disease Social History Social History Smoking status: Never smoker Alcohol intake: current Alcohol use details: occasional drinker Substance use: never Substance use type: does not use Lack of Transportation: No Lack of Food: Never True Current Housing: I Have Housing Concerned About Future Housing: No Difficulty Paying Gas/Electric Bills: YES Difficulty Paying for Meds: No Currently Unemployed: No Education: High School Diploma/GED Difficulty w/ Childcare or Family Care: No Living arrangements: with family Gender identity (if verbalized by the patient): Female Sexual Orientation (if Verbalized by the Patient): Straight or Heterosexual Spiritual care concerns: No Anes - Eval Final PreProcedure Day of Procedure 11/20/22 08:36 Patient weight: normal Heart: regular rate and rhythm Lungs: clear to auscultation and normal air movement Airway: Mallampati scale class II Neurological: alert and oriented Last oral intake: >/= 8 hours ASA classification: II Emergent: no Anesthetic plan: proceed Anesthesia type and monitoring: general LMA Results Review: All pre-operative results and documents have been reviewed as part of the pre-operative evaluation. Informed Consent: The patient's anesthetic plan and its attendant risks and benefits were discussed with the patient/family/POA. Questions were solicited and answers provided to the satisfaction of the patient/family/POA.
[2022-11-20] MEDS: LACTATED RINGERS 1,000 ML 30 ML IV CONT ×2 (12:49→15:17)
[2022-11-20] MEDS: ACETAMINOPHEN 500 MG TABLET 1000 MG PO (13:47)
[2022-11-20] MEDS: KETOROLAC 15 MG/ML VIAL (*BKC) IV PUSH (13:51)
--- NOTE | 2022-11-20 13:57 | WPDHPUPDATE1 ---
History and Physical Update Update Date/Time: 11/20/22 13:57 History and Physical has been reviewed, including an updated exam of the patient. There are NO changes in the patient's condition. Risks, benefits, and alternatives have been discussed and questions answered. Patient agrees to proceed with procedure.
[2022-11-20] MEDS: ceFAZolin 2 GM/D5W 50 ML 2 GM/50 ML BAG IVPB (14:03)
[2022-11-20] MEDS: BUPIVACAINE/EPINEPHRINE 0.5% 50 ML VIAL 30 ML INFILTRATE (14:41)
[2022-11-20] MEDS: fentaNYL CITRATE INJ (*CRX) 100 MCG/2 ML VIAL 25 MCG IV PUSH ×8 (15:34→16:11)
--- NOTE | 2022-11-20 15:42 | P.OP_ITS ---
Procedure Note - Detailed Date of Procedure 11/20/22 Pre-op Diagnosis painful ortho hardware right knee Post-op Diagnosis Other (1. Medial meniscus tear 2. Painful retained hardware) Procedure Performed Arthroscopic partial medial meniscectomy, right knee. Removal retained hardware right tibia interference screw. Surgeon Jordi Alexander MD Anesthesia General Findings The medial meniscus showed significant degenerative tearing throughout the posterior horn and medial aspect especially. The previous repair was noted. The horizontal mattress sutures appeared intact but the surrounding meniscus, and the meniscus extending more anteriorly, was torn. Torn and degenerative meniscus was removed with the arthroscopic shaver and punches. Suture material was removed as well. Stable rim of remaining meniscus was obtained using the radiofrequency probe. There were grade 2/Iii degenerative chondral changes on the medial femur treated with gentle chondroplasty. The anterior cruciate ligament appeared intact. The lateral meniscus showed only very minimal anterior fraying and no significant substantive tearing. There were some small cartilaginous loose bodies floating in the knee which were removed with the shaver. Description of Procedure The patient was identified and the surgical site confirmed and signed in the preoperative holding area. Antibiotics were started per protocol. She was brought to the operative room and transferred to the OR table. A general anesthetic was administered. Supine position with the operative lower extremity position in the leg marks after placement of a well padded tourniquet. The leg support was lowered and the contralateral limb was supported with a soft bolster. The knee was prepped and draped in the usual sterile fashion. A time- out was performed. The portal sites were marked and infiltrated with 0.5% Marcaine 20 mL. The limb was exsanguinated and the tourniquet inflated to 300 mL Hg. Standard inferolateral and inferomedial portals were established. Inflow was obtained with the saline pump. The camera was introduced. Diagnostic inspection of the joint was accomplished. The medial meniscus tear was identified. The meniscus was debrided with the arthroscopic shaver and punches until stable. The radiofrequency probe was also used for further d?bridement. The ACL reconstruction appeared quite anatomic and well healed. The tip of the screw was not visible but there was some concern that it could be palpable and had the potential of irritating the ACL graft. This point the previous proximal tibial incision was opened. Mini C-arm was used to identify the cannulation of the interference screw. Screw was removed and the wound closed with interrupted 3-0 Monocryl suture followed by running 4-0 Monocryl suture. The arthroscopic instruments were removed. The tourniquet released and wounds closed with subcutaneous 4-0 Monocryl absorbable suture. Steri strips and a sterile dressing were applied. A light elastic wrap was placed. The patient was extubated and brought to the recovery room in stable condition. Estimated Blood Loss 5 Drains No Complications No immediate complications Condition Stable Disposition PACU [facility] Surgery - Charge Forward: Surgery Rodolfo
[2022-11-20] MEDS: HYDROmorphone HCL INJ (*CRX) 1 MG/ML SYR 0.5 MG IV PUSH (16:15)
[2022-11-20] MEDS: oxyCODONE HCL (*CRX) 5 MG TAB IR PO (16:46)
== END 2022-11-20 17:50 | disposition home or self-care (01) ==
PROVIDERS: PCP Physician Assistant; Visit Provider Orthopaedic Surgery
PROC: (CPT 29870; principal; 2022-11-20 14:00)
PROC: (CPT 29881; 2022-11-20 14:00)
DX: T84.84XA Pain due to internal orthopedic prosthetic devices, implants and grafts, initial encounter (principal); M25.561 Pain in right knee; Y83.8 Other surgical procedures as the cause of abnormal reaction of the patient, or of later complication, without mention of misadventure at the time of the procedure; S83.241A Other tear of medial meniscus, current injury, right knee, initial encounter; X50.0XXA Overexertion from strenuous movement or load, initial encounter; E78.5 Hyperlipidemia, unspecified; Z87.81 Personal history of (healed) traumatic fracture
CPT/HCPCS: 29881; 20680; 93005; 99199; A9270; J0690; J1100; J1170; J1885; J2250; J2370; J2405; J2704; J3010; J7120

== ENCOUNTER 2022-12-25 10:45 | Outpatient (RCR) | payer OTHER, SELFPAY ==
--- NOTE | 2022-11-26 14:45 | OPREHPOC ---
Outpatient Therapy Plan of Care This is a Multidisciplinary Plan of Care that may contain components documented by all disciplines (PT, OT, and ST.) PT Problem 1 PT Problem #1 Knowledge Deficit PT Goal 1 Goal 1. Patient will perform independent HEP Target Visit 12 PT Problem 2 PT Problem #2 Pain PT Goal 1 Goal 1. Patient able to ambulate without assistive device and pain no higher than 4/10 Target Visit 12 PT Problem 3 PT Problem #3 Impaired Range of Motion PT Goal 1 Goal 1. Improve knee flexion to 120 Target Visit 12 PT Goal 2 Goal 2. Improve knee extension to 0 Target Visit 12 PT Problem 4 PT Problem #4 Impaired Strength PT Goal 1 Goal 1. Improve right knee extension to 4+/5 Target Visit 12
--- NOTE | 2022-11-26 14:46 | PTOPEVAL1 ---
Assessment and note entered by Peggy Dumont DPT Evaluation Information Assessment Status Evaluation Subjective Information Pt reports a broken knee and surgery 2 years ago , another on 11/20/22 as she had to have some hardware removed. Went home the same day, is currently using crutches. Highest pain 20/10 and lowest 7/10. Difficulty with walking, 3 stairs outside which are difficult. Pt has not been driving. Has had some help from her family, is not cooking or cleaning now. Has been able to bathe independently. 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 Returns to MD around 12/17/22. Patient goal: walk better, get rid of pain Reported Pain Level Pain Score 6: Self Report Assessment PT Clinical Summary The patient is presenting to skilled therapy s/p right knee arthroscopic debridement with hardware removal. She presents with greatly decreased active motion, to 70 degrees flexion and 10 degrees from full extension. She also presents with gait impairments and is currently using crutches. These impairments are contributing to her pain and difficulty with activities including cooking, cleaning, walking, and returning to work. She will benefit from therapy to reduce pain and return to full function. Plan of Care Interventions Electrical Stimulation,Gait Training,Hot Pack/Cold Pack,Manual Therapy,Neuro Re-education,Patient/ Caregiver Education,Therapeutic Activities, Therapeutic Exercise,Self-Care/Home Management PT Services Indicated Yes Treatment Frequency and 2 times a week for 8-12 visits Duration These treatments will address the objective and functional deficits as defined above. The patient will be advanced safely and appropriately in order for the patient to progress towards his/her prior level of function. Additional exercises will be introduced and as well as a comprehensive home exercise program upon discharge, if needed, ?to ensure carryover of functional gains achieved in the clinic. This treatment plan has been reviewed and agreement upon by the patient.
--- NOTE | 2022-12-25 11:31 | OPREHPOC ---
Outpatient Therapy Plan of Care This is a Multidisciplinary Plan of Care that may contain components documented by all disciplines (PT, OT, and ST.) PT Problem 1 PT Problem #1 Knowledge Deficit PT Goal 1 Goal 1. Patient will perform independent HEP Target Visit 12 Progress Partially Met PT Problem 2 PT Problem #2 Pain PT Goal 1 Goal 1. Patient able to ambulate without assistive device and pain no higher than 4/10 Target Visit 12 Progress Partially Met PT Problem 3 PT Problem #3 Impaired Range of Motion PT Goal 1 Goal 1. Improve knee flexion to 120 Target Visit 12 Progress Partially Met Comment 105 today PT Goal 2 Goal 2. Improve knee extension to 0 Target Visit 12 Progress Partially Met Comment +2 today PT Problem 4 PT Problem #4 Impaired Strength PT Goal 1 Goal 1. Improve right knee extension to 4+/5 Target Visit 12 Comment not assessed
--- NOTE | 2022-12-25 11:31 | PTOPPROGNS ---
Assessment and note entered by Peggy Dumont DPT Evaluation Information Assessment Status Progress Subjective Information Highest pain 8/10 and lowest 5/10. Is now using a cane to ambulate. Still having a lot of pain in the back of her knee. Reports the doctor's office has told her to take it easy this week due to high pain levels. Has not yet been able to return to work. Assessment PT Clinical Summary The patient has made good progress in therapy. She reports greatly improved range of motion to 105 degrees of active flexion and 2 degrees from full extension. She also demonstrates improved gait speed and is now ambulating with a cane. She will benefit from continued therapy to further address ROM, strength, and gait in order to return to full function including work. Plan of Care Interventions Electrical Stimulation,Gait Training,Hot Pack/Cold Pack,Manual Therapy,Neuro Re-education,Patient/ Caregiver Education,Therapeutic Activities, Therapeutic Exercise PT Services Indicated Yes Treatment Frequency and 2 times a week for 4 weeks Duration These treatments will address the objective and functional deficits as defined above. The patient will be advanced safely and appropriately in order for the patient to progress towards his/her prior level of function. Additional exercises will be introduced and as well as a comprehensive home exercise program upon discharge, if needed, ?to ensure carryover of functional gains achieved in the clinic. This treatment plan has been reviewed and agreement upon by the patient.
--- NOTE | 2023-01-13 11:39 | PCPTNOTE ---
Canceled 01/13/23 appointment noting that she saw her MD and is supposed to take it easy for the rest of the month.
--- NOTE | 2023-01-14 09:42 | PCPTNOTE ---
Patient reports that per MD she is to take it easy this month. Plans to follow up with him in January and will call if she needs to continue therapy.
--- NOTE | 2023-02-23 12:37 | PCPTNOTE ---
Patient has not returned to therapy after being put on hold. Her case will be discharged.
== END 2023-02-22 10:58 | disposition home or self-care (01) ==
LOC: ANHPT 10:45
PROVIDERS: PCP Physician Assistant; Visit Provider Orthopaedic Surgery
DX: Z47.89 Encounter for other orthopedic aftercare (principal)
CPT/HCPCS: 97014; 97110; 97140; 97161; 97530; 99199; G0283

== ENCOUNTER 2023-01-08 08:39 | Outpatient (CLI) | payer OTHER, SELFPAY ==
--- NOTE | ~2023-01-08 | XR_ITS ---
EXAMINATION: XR knee RT min 4V DATE: 01/08/2023 08:53 INDICATION: Right knee pain. TECHNIQUE: 4 views of right knee were obtained. COMPARISON: Right knee radiographs 08/24/2022 FINDINGS: Bone alignment is normal. No fracture. There is mild tricompartmental osteoarthritis. There is an interference screw in distal femur from anterior cruciate ligament reconstruction. The interfe rence screw in proximal tibia is no longer present. No knee joint effusion. IMPRESSION: 1. Mild right knee osteoarthritis. Reviewed, dictated and finalized at location A.
== END 2023-01-08 08:40 | disposition home or self-care (01) ==
PROVIDERS: PCP Physician Assistant; Visit Provider Orthopaedic Surgery
DX: M17.11 Unilateral primary osteoarthritis, right knee (principal)
CPT/HCPCS: 73564

== ENCOUNTER 2023-03-04 09:40 | Emergency (ER) | payer OTHER, SELFPAY ==
[2023-03-04] VITALS (14 sets, daily range): BP systolic 105–116; BP diastolic 68–75; PULSE 65–73; RESP 14–21; TEMP 36.8–37; O2SAT 100
--- NOTE | ~2023-03-04 | CT_ITS ---
EXAMINATION: CT brain wo con DATE: 03/04/2023 10:34 INDICATION: Left-sided facial numbness, burning. Blurry vision this morning. TECHNIQUE: Computed tomography (CT) of the head was performed without intravenous contrast. The mA wa s adjusted according to patient size. Iterative reconstruction technique was employed. Exam dose: 60 5.33 mGy-cm total exam DLP. COMPARISON: None FINDINGS: Bilateral carotid siphon internal carotid artery calcifications. No intracranial mass lesion or hemorrhage or cerebrovascular accident is detected. No midline shift o r mass effect. Normal ventricular size. No subdural or epidural hematoma. No fracture or bone destruction of the cranial vault. The mastoid air cells and included paranasal si nuses are normally developed and aerated. IMPRESSION: Cerebral atherosclerosis No acute intracranial finding Reviewed, dictated and finalized at Location A. Reviewed, dictated and finalized at location L.
--- NOTE | 2023-03-04 09:48 | PC.NURSE ---
Pt to stroke stop for numbness on left side. Evaluated by Dr. Heaton, CT and Visual acuity ordered.
--- NOTE | 2023-03-04 09:50 | PC.NURSE ---
Glasses with both eyes, 20/40
[2023-03-04] MEDS: TETRACAINE HCL 0.5% OPHTH SOLN 4 ML BTL 1 DROP EACH EYE (12:43)
[2023-03-04] MEDS: MORPHINE SULFATE (*CRX) 2 MG/ML INJ IV PUSH (12:43)
[2023-03-04] MEDS: FLUORESCEIN SOD 1 MG/STRIP EACH EYE (12:43)
[2023-03-04] MEDS: oxyCODONE/ACETAMINOPHEN (*CRX) 5-325 MG TABLET 1 TABLET PO (13:49)
--- NOTE | 2023-03-04 15:11 | ED.EYEPROB ---
HPI - Eye Problem General Chief complaint: Eye Problems Stated complaint: left side facial pain, left eye red Time Seen by Provider: 03/04/23 12:28 History of Present Illness HPI Narrative: This is a 57-year-old female, with history of vitamin D deficiency, who presents emergency department complaining of quick onset left sided facial and left eye pain. Patient states she was in her usual state of health at work, when she developed sudden onset sharp left-sided facial pain and eye irritation. She describes the pain as 8/10 and aggravated with minimal touch. She denies weakness, numbness, vertigo or loss of vision. Related Data Home Medications Medication Instructions Recorded Confirmed acetaminophen 325 mg capsule 325 mg PO Q6H PRN Pain 08/24/22 02/08/23 (Tylenol) albuterol sulfate 90 mcg/actuation 1 inh inhalation Q4H 08/24/22 02/08/23 aerosol inhaler cholecalciferol (vitamin D3) 250 250 mcg PO WEEKLY 08/24/22 02/08/23 mcg (10,000 unit) capsule atorvastatin 20 mg tablet 20 mg PO DAILY 11/13/22 02/08/23 Allergies Allergy/AdvReac Type Severity Reaction Status Date / Time No Known Allergies Allergy Verified 02/08/23 08:00 Review of Systems Review of Systems: CONSTITUTIONAL: Denies fever, chills, or sweats. EYES: Left eye irritation denies visual changes, redness, or discharge. ENT: Denies rhinorrhea, congestion, sore throat, or otalgia. CARDIOVASCULAR: Denies chest pain, palpitations, or edema. RESPIRATORY: Denies cough or dyspnea. GASTROINTESTINAL: Denies abdominal pain, nausea, vomiting, or diarrhea. GENITOURINARY: Denies dysuria or hematuria. SKIN: Denies rash or itching. MUSCULOSKELETAL: Denies back pain, joint pain, or myalgia. NEUROLOGIC: Left facial pain denies headache, numbness, dizziness, or weakness. PSYCHIATRIC: Denies anxiety or depression. [facility] Past Medical History Medical History Dyslipidemia Fracture of right tibial plateau Mixed anxiety and depressive disorder No significant past medical history Surgical History Surgical History History of arthroscopy of right knee (~11/20/22) Debridement w/ hardware removal History of section History of lateral meniscus repair of right knee (~11/14/20) ACL reconstruction History of tonsillectomy Family History Family History Father Hypertension Diabetes mellitus Kidney disease Social History Social History Smoking status: Never smoker Alcohol intake: current Alcohol use details: occasional drinker Substance use: never Substance use type: does not use Lack of Transportation: No Lack of Food: Never True Current Housing: I Have Housing Concerned About Future Housing: No Difficulty Paying Gas/Electric Bills: YES Difficulty Paying for Meds: No Currently Unemployed: No Education: High School Diploma/GED Difficulty w/ Childcare or Family Care: No Living arrangements: with family Gender identity (if verbalized by the patient): Female Sexual Orientation (if Verbalized by the Patient): Straight or Heterosexual Spiritual care concerns: No Exam Narrative: GENERAL: Well-developed, well-nourished, and in no acute distress. HEAD: Normocephalic, atraumatic. EYES: PERRLA and EOMI. visual schaffer intact. Funduscopic exam not concerning for retinal abnormality. Mild scleral injection of the left eye. Fluorescein stain not concerning for ulcer or abrasion. CHEST: Clear to auscultation. No respiratory distress. No wheezes rales or rhonchi HEART: Regular rate and rhythm. No murmur heard. Normal peripheral pulses. ABDOMEN: Soft, nontender, nondistended, normal active bowel sounds. EXTREMITIES: Normal range of motion. No edema. SKIN: Warm, dry, no rash. NEURO: Alert and oriented x
[2023-03-04 15:16] LABS: Alanine Aminotransferase 22 U/L (6-35); Albumin Level 4.2 g/dL (3.5-5.1); Alkaline Phosphatase 87 U/L (38-126); Anion Gap 6 mmol/L (8-16); Aspartate Amino Transferase 26 U/L (14-36); Bilirubin,Total 0.5 mg/dL (0.2-1.3); Blood Urea Nitrogen 13 mg/dL (7-17); Calcium 8.7 mg/dL (8.4-10.2); Carbon Dioxide 24 mmol/L (22-30); Chloride 107 mmol/L (98-107); Estimated CRCL calculation 85 ml/min; Estimated Glomerular Filt Rate > 60; Glucose 98 mg/dL (65-110); Sodium 137 mmol/L (137-145)
== END 2023-03-04 15:36 | disposition home or self-care (01) ==
PROVIDERS: Emergency Provider Preventive Medicine Aerospace Medicine; PCP Physician Assistant
DX: R51.9 Headache, unspecified (principal); E78.5 Hyperlipidemia, unspecified; E55.9 Vitamin D deficiency, unspecified
CPT/HCPCS: 36415; 70450; 80053; 96374; 99284; A9270; J2270

== ENCOUNTER 2024-12-06 09:43 | Outpatient (CLI) | payer OTHER, SELFPAY ==
--- NOTE | 2024-12-06 | ECG_ITS ---
Test Date: 2024-12-06 10:20:20 Measurements Intervals Jerome Rate: 60 P: -1 AL: 138 QRS: -12 QRSD: 92 T: 0 QT: 405 QTc: 406 Interpretive Statements SINUS RHYTHM LOW QRS VOLTAGE IN PRECORDIAL LEADS [QRS DEFLECTION < 1.0 mV IN CHEST LEADS] POSSIBLE RIGHT VENTRICULAR CONDUCTION DELAY [RSR (QR) IN V1/V2] No previous ECG available for comparison Electronically Signed On 12-06-2024 14:39:32 CDT by Brad Clarke M.D.
--- OUTSIDE RECORDS SUMMARY | 2024-12-06 10:05 | XMS_ITS | Clinical Summary ---
Author Organization [facility] Address [address] [place] [address] Care Team Providers Care [facility] Name Role Phone Unavailable Primary Care Provider Unavailabl e Source Comments [facility],non-owned Affiliates and Associated Physician Practices is amultiple site organization consisting of ambulatory clinics and hospital sitesin [place], [place], [place] and [place]. This disclosure is being madepursuant to the Care Everywhere program and may not contain all information available regarding this patient. Last updated 18.[facility] Allergies No known active allergies Medications * Be aware that medications may not be up to date on this document. Alwaysverify current medications with the patient. Dextromethorpha n-Guaifenesin (MUCINEX DM) 30-600 MG Take by mouth. 6 Active ibuprofen (MOTRIN) 600 MG tablet Take 600 mg by mouth q8h PRN (Pain). 30 tablet 0 6 Active YA-Gyopvxlvqs-M cetaminophen (NIGHT TIME COLD/FLU RELIEF) 15-6.25-325 MG Take by mouth. 6 Active albuterol HFA (PROVENTIL HFA) 108 (90 BASE) MCG/ACT inhaler Inhale 2 puffs by mouth q6h PRN (Wheezing, Shortness of Breath). 8.5 g 0 6 Active Diphenhydramine -PE-APAP (COLD CONTROL PE COLD/FLU MED) 25-10-650 MG Take by mouth. 6 Active Social History Tobacco Use Types Packs/Day Years Used Date Smoking Tobacco: Never Alcohol Use Standard Drinks/Week Comments No 0 (1 standard drink = 0.6 oz pur e alcohol) AUDIT-C Answer Date Recorded Q1: How often do you have a drink containing alcohol? Never 10/13/2021 Q2: How many drinks containi ng alcohol do you have on a typical day when you are drinking? Patient does not drink Q3: How often do you have si x or more drinks on one occasion? Never 10/13/2021 Comments Unknown Sex and Gender Information Value Date Recorded Sex Assigned at Not on file Legal Sex Female 5:49 PM [employer] Gender Identity Not on file Sexual Orientation Not on file Last Filed Vital Signs Vital Sign Reading Time Taken Comments Blood Pressure 126/81 10/13/2021 10:44 AM CDT Pulse 78 10/13/2021 2:47 PM CDT Temperature 36.7 C (98.1 F) 10/13/2021 10:44 AM CDT Respiratory Rate 16 10/13/2021 2:47 PM CDT Oxygen Saturation 100% 10/13/2021 2:47 PM CDT Inhaled Oxygen Concentration - - Weight 65.8 kg (145 lb) 10/13/2021 10:44 AM CDT Height 160 cm (5' 3) 10/13/2021 10:44 AM CDT Body Mass Index 25.69 10/13/2021 10:44 AM CDT Plan of Treatment Health Maintenance Due Date Last Done Comments COLOGUARD (AGES 45-75) - COL ON CA SCREENING 1964 COLON MONITORING 1964 COLONOSCOPY - COLON CA SCREENING 1964 CT COLONOGRAPHY - COLON CA SCREENING 1964 Colorectal Cancer Screening 1964 FIT - COLON CA SCREENING 1964 FLEX SIG - COLON CA SCREENING 1964 LIPID TESTING 1964 MAMMOGRAM 1964 HIV SCREENING 1979 HEPATITIS C SCREENING 06/24/1982 DTAP/TDAP/TD VACCINES (1 - Tdap) 1983 PNEUMOCOCCAL VACCINE 50+ (1 of 1 - PCV) 2014 ZOSTER VACCINE (1 of 2) 2014 COVID-19 VACCINE (1 - 2023-2 5 season) 2024 DEPRESSION SCREENING 05/31/2024 INFLUENZA VACCINE (Season Ended) 2025 Respiratory Syncytial Virus (RSV) Vaccine Pt: or over 60 yrs (1 - 1-dose 75+ series) 2039 HEPATITIS B VACCINE Aged Out No longe r eligible based on patient's age to complete this topic HIB VACCINE Aged Out No longer eligi ble based on patient's age to complete this topic HPV VACCINE Aged Out No longer eligi ble based on patient's age to complete this topic MENINGOCOCCAL (Group B) VACC INE SHARED DECISION-MAKING Aged Out No longer eligibl e based on patient's age to complete this topic MENINGOCOCCAL GROUPS A/C/Y/W VACCINE Aged Out No longer eligible b ased on patient's age to complete this topic Insurance [address] [place] [id number] [employer]
--- OUTSIDE RECORDS SUMMARY | 2024-12-06 10:05 | XMS_ITS | Clinical Summary ---
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 Gender Identity Not on file Sexual Orientation Not on file Plan of Treatment Health Maintenance Due Date Last Done Comments Cervical Cancer Screening Pa p Smear (Age 30 to 64) Every 3 Years 1964 Colorectal Cancer Screening Colonoscopy (10 Years) 1964 Annual Physical 1967 Hepatitis C 1982 DTaP, Tdap and Td Vaccines ( 1 - Tdap) 1983 Cervical Cancer Screening Pa p with HPV Testing (Age 30 to 64) Every 5 Years 1994 Cervical Cancer Screening with HPV 1994 Mammogram Screening 2004 Pneumococcal Vaccine: 50+ Ye ars (1 of 1 - PCV) 2014 Zoster Vaccines (1 of 2) 2014 COVID-19 Vaccine ( - 2023-2 5 season) 2024 RSV Immunization or 60+ Years (1 - 1-dose 75+ series) 2039 Meningococcal B Vaccine Aged Out No l onger eligible based on patient's age to complete this topic Meningococcal Vaccine Aged Out No yuri alcides eligible based on patient's age to complete this topic RSV Immunizations Under 20 Months Aged Out No longer eligible based on patient's age to complete this topic
--- OUTSIDE RECORDS SUMMARY | 2024-12-06 10:05 | XMS_ITS | Clinical Summary ---
Author Organization [facility] Address [address] [place] [address] Phone Care Team Providers Care Senior Program Planner Name Role Phone Unavailable Primary Care Provider Unavailabl e Allergies No known active allergies Medications albuterol sulfate 90 mcg/Actuation inhaler INHALE 2 PUFFS EVERY 4 HOURS BY INHALATION ROUTE. Active Active Problems Problem Noted Date Diagnosed Date Iron deficiency anemia 09/04/2021 Family History Medical History Relation Name Comments Cancer Brother Diabetes Father Diabetes Sister 3 Relation Name Status Comments Brother Father Alive Mother Alive Sister 1 Alive Sister 2 Alive Sister 3 Alive Sister 4 Alive Son 1 Alive Son 2 Alive Son 3 Alive Social History Tobacco Use Types Packs/Day Years Used Date Smoking Tobacco: Never Smokeless Tobacco: Never Alcohol Use Standard Drinks/Week Comments Yes 0 (1 standard drink = 0.6 oz pur e alcohol) Comments No Sex and Gender Information Value Date Recorded Sex Assigned at Not on file 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 Gender Identity Not on file Sexual Orientation Not on file Last Filed Vital Signs Vital Sign Reading Time Taken Comments Blood Pressure 125/77 09/04/2021 3:06 PM CDT Pulse 78 09/04/2021 3:06 PM CDT Temperature 36.3 C (97.3 F) 09/04/2021 3:06 PM CDT Respiratory Rate 20 07/27/2020 1:26 PM SHIP KEEPER Oxygen Saturation 95% 09/04/2021 3:06 PM CDT Inhaled Oxygen Concentration - - Weight 70.1 kg (154 lb 8 oz) 09/04/2021 3:06 PM CDT Height 160 cm (5' 3) 09/04/2021 3:06 PM CDT Body Mass Index 27.37 09/04/2021 3:06 PM CDT Plan of Treatment Health Maintenance Due Date Last Done Comments DTAP/TDAP/TD VACCINES (1 - Tdap) 1983 HPV/Cotest (21-29) 1985 CERVICAL CANCER SCREENING 1994 HPV/Cotest (30-65) 1994 PAP SMEAR 1994 BREAST CANCER SCREENING 2004 COLORECTAL SCREENING 2009 Colorectal Cancer Screening 2009 FIT-DNA Q 3 years 2009 FIT/FOBT Q 1 year 2009 Flex Sig/CT Colonography Q 5 years 2009 ZOSTER VACCINE (1 of 2) 2014 INFLUENZA VACCINE (#1) 2024 RSV VACCINE (60+ or ) (1 - 1-dose 75+ series) 2039 HEPATITIS B VACCINES Aged Out No long er eligible based on patient's age to complete this topic Insurance RX [employer] RX Member Subscriber Plan / Payer (Ef fective 2020-Present) Name:Jessica Tomas Relation to Subscriber:Self Name:Jessica Tomas Subscriber ID:Not on file Payer ID:Not on file Group ID:[id number] Type:RX Commercial Address: [address] [facility] [address] [employer]
--- OUTSIDE RECORDS SUMMARY | 2024-12-06 10:05 | XMS_ITS | Data Portability ---
Author Organization [facility] Address [address] [place] [address] Assessment Encounter Date Assessment Date Assessment LastModified by Organization Details LastModified Time 09/06/2023 09/06/2023 Necessity of injection is to treat acute symptomatology pain in the joint Not available 09/06/2023 15:47:02 Plan of Treatment Reminders Order Date Submit Date Provider Last Modified By Organization Details Last Modified Time Details Appointments None recorded. Lab None recorded. Referral None recorded. Procedures None recorded. Surgeries None recorded. Imaging CT, knee, w/o contrast - PLEASE ASSIST WITH PRE AUTH FOR CT SCAN [place] RIGHT KNEE 2023 024 [email or web address] [facility] Scheduling, [address] [place], [address], 13:42:13 XR, knee 2023 024 [email or web address] [facility], [address] [place], [address], 4 11:32:26 Medication Orders triamcinolo ne acetonide 40 mg/mL suspension for injection 2023 024 [place] [address] [id number], [address], [place], [phone], 4 14:04:14 lidocaine (PF) 10 mg/mL (1 %) injection solution 2023 024 [place] [address] [id number], [address], [place], [id number], 14:04:14 Patient TargetsNo targets recorded. Patient Instructions Encounter Date Encounter Id Patient Instructions Last Modified By Organization Details Last Modified Time 09/06/2023 [id number] advance directiv es: care instructions [email or web address] 1 Not available 09/06/2023 11:30:05 learning about living aggarwal [email or web address] 1 Not available 09/06/2023 11:30:05 WORK NOTE [email or web address] Not available 2023 15:48:24 09/20/2023 [id number] PATIENT WILL STI LL HAVE SIGINFICANT PAIN IF JUST HAS REVISION ACL SURGERY DISCUSSED ALL FINDINGS, REVIEWED XRAYS TRICOMPARTMENTAL ARTHRITIC CHANGES RECOMMEND TKR WHICH WILL TAKE CARE OF INSTABILITY AND ARTHTRITIS EXPLAINED RISKS, BENEFITS RIGHT TKR DR. AGUDELO FOR CLEARANCE Jaimie Ortiz, scribing for Dr Stef Archibald, signed by Dr Stef Archibald Date:09/20/2023 Time:3:19 IStef , performed the above service scribed on my behalf by Jaimie Bae and I confirm the accuracy of the documentation written by the scribe. Date:09/20/2023 Time:3:19 Not available 09/20/2023 17:20:04 Reason for Referral None Reported. Results Created Date Observation Date Name Description Value Unit Range Abnormal Flag Note LastModifiedBy Organization Detail LastModifiedTime 09/06/19 24 XR, knee No observ ation record ed. [email or web address] [facility] [address] [place], [address], 09/06/2023 11:29:00 Result Notes None recorded. Problems Name Problem SNOMED Code Status Onset Date Resolution Date Notes Provider Name and Address Organization Details Recorded Time Non-smoker 6200300 Active 2023 Beth Mccauley [facility] 10:46:39 Osteoarthri tis of right knee joint 5040937605015 00 Active 2023 Stef Archibald MD [address] [place] [address],[address], [place], [address], [facility] 4 11:28:35 Instability of joint of right knee 0427511809459 102 Active 2023 Stef Archibald MD [address] [place] [address],[address], [place], [address], [facility] 4 11:29:16 Sprain of anterior cruciate ligament of knee 806208913 Active 2023 Stef Archibald MD [address] [place] [address],[address], [place], [address], [facility] 4 11:29:50 Problem Notes None recorded. Procedures Surgical History Date Name Laterality Status Provider Name and Address Organization Details Recorded Time Intra-articular Knee Steroid Injection completed Jaimie Bae [facility] 09/06/2023 15:46:58 Orthopedic Surgery completed Beth Mccauley [facility] 09/06/2023 10:45:36 Imaging Results None recorded. Procedure Notes None recorded. Medical Equipment None Reported. Allergies No known drug allergies Medications Name Sig Start Date Stop Date Status Note LastModified by Organization Details LastModified Time triamcinolone acetonide 40 mg/mL suspension for injection Take 1 mL by injection route. 2023 active Not Available Not Available Not Avai lable ibuprofen active Not Available Not Madai ilable Not Available Tylenol active Not Available Not Avail able Not Available lidocaine (PF) 10 mg/mL (1 %) injection solution Take 0.5 mL by injection route. 2023 active [facility]#[id number] Not Available Not Available Not Available Vitals Date Recorded Body height Body mass index (BMI) Body weight Provider Name and Address Organization Details Last Updated DateTime 09/06/2023 162.56 cm 23.9 kg/m2 17566.34 g Beth Mccauley [facility] 09/06/2023 10:45:17 Date Recorded Body height Body mass index (BMI) Body weight Provider Name and Address Organization Details Last Updated DateTime 09/20/2023 162.56 cm 23.9 kg/m2 68690.34 g Stef Archibald MD [address] [facility],[place] [address], [place], [address], [facility] 09/20/2023 12:33:13 Social History Question Answer Notes LastModified by Organizat ion Details LastModified Time Tobacco Smoking Status Never Smoker Beth Mccauley [facility] 09/06/2023 10:45:36 Do You Have An Advance Directive? No Information not available 09/06/2023 Are You Blind Or Do You Have Difficulty Seeing? No Information not available 09/06/2023 Is Blood Transfusion Acceptable In An Emergency? Yes Information not available 09/06/2023 What Is Your Level Of Caffeine Consumption? Moderate Information not available 09/06/2023 Are You Deaf Or Do You Have Serious Difficulty Hearing? No Information not available 09/06/2023 What Type Of Diet Are You Following? REGULAR Information not available 09/06/2023 Which Of Your Hands Is Dominant? Right Information not available 09/06/2023 What Was The Date Of Your Most Recent Tobacco Screening? 09/20/2023 [email or web address] Information not available 09/20/2023 Do You Have Any Pets? Yes Information not available 09/06/2023 What Is Your Relationship Status? Single Information not available 09/06/2023 How Many Days In The Past Year Have You Consumed 4 Or More Drinks? 2 Information no t available 09/06/2023 Sex: Unknown Functional Status Question Answer Note LastModified by Organizat ion Details LastModified Time Do you use any illicit or recreational drugs? No Information not available 09/06/2023 Do you or have you ever used any other forms of tobacco or nicotine? No Information not available 09/06/2023 What is your level of alcohol consumption? Occasional Information not available 09/06/2023 Are you able to care for yourself? Yes Information n ot available 09/06/2023 What is your exercise level? Occasional Information not available 09/06/2023 Mental Status Question Answer Note LastModified by Organization D etails LastModified Time Do you feel stressed (tense, restless, nervous, or anxious, or unable to sleep at night)? [id number] wilian Information not available 09/06/2023 Family History Relationship Description Onset Age of this Age Resolved Age Notes LastModified by Organization Details LastModified Time Paternal Grandmother Rheumatoid arthritis Not available 09/05 10:45:36 Sister Diabetes mellitus Not available 09/05 10:45:36 Father Hypertensive disorder Not available 09/05 10:45:36 Father Rheumatoid arthritis Not available 09/05 10:45:36 Father Diabetes mellitus Not available 09/05 10:45:36 Medical History No medical history recorded. Gynecological HistoryNo gynecological history recorded. Obstetrics History GPAL:G 0 P 0 0 0 0 Past Encounters Encounter ID Performer Location Encounter Start Date Encounter Closed Date Diagnosis/Indication Diagnosis SNOMED-CT Code Diagnosis ICD10 Code Diagnosis Note [id number] MD NUNO [facility] [address] [place] [address] 09/06/2023 10:08:34 09/06/2023 11:32:26 Advance directive discussed with patient 307196882 Z71.89 EDUCATED ON ADVANCE DIRECTIVES AND DISCUSSING WISHES WITH FAMILY MEMBERS Osteoarthr itis of right knee joint 6003124523 18060 M17.11 Instabilit y of joint of right knee 3278976768 845313 M25.361 Sprain of anterior cruciate ligament of knee 070652679 S83.511A [id number] MD NUNO [facility] [address] [place] [address] 09/20/2023 10:45:07 09/20/2023 12:54:55 Advance directive discussed with patient 613734823 Z71.89 EDUCATED ON ADVANCE DIRECTIVES AND DISCUSSING WISHES WITH FAMILY MEMBERS Osteoarthr itis of right knee joint 6325549829 96826 M17.11 Instabilit y of joint of right knee 2334159207 328537 M25.361 Health Concerns Section Related Observation LastModified by Organization Detai ls LastModified Time None Recorded Concern Status LastModified by Organization Details LastModified Time None Recorded Advance Directives Directive N: Payers Insurance Date Sequence Insurance Name Policy Number Policy [place] Covered Member ID [place] Member ID Guarantor Name 09/17/2023 1 [facility] Jessica E Burdick Streeter [id number] Jessica E Burdick Streeter Notes Date Note Type Note Provider Name and Address Organization Details Recorded Time 024 text/ht ml 58 YEAR OLD FEMALE HERE FOR RIGHT KNEE PROBLEM ONSET 6 MONTHS AGOPATIENT FELL 09/01/2023ATIENT STATES A MODERATE PAINSWELLINGPOPPINGBRUISESSHE WENT TO THOP ON 09/02/2023XRAY DONEINJECTON AT OP 09/02/2023 DID HELPNO PTHX OF RIGHT KNEE SX 10[place]2020 [place] SCREW REMOVALTAKING TYLENOL AND IBUPROFEN NEEDEDKNEE BRACE Stef Archibald MD [address] [place] [address],[address], [place], [address] 09/06/2023 15:49:33 024 text/ht ml F/U RIGHT KNEE HAVING A MARKED PAIN AND SEVERE INSTABILITYFALLSSWELLINGINJECTION ON 09/06/2023 DID HELP FEW DAYSTAKING TYLENOL NEEDEDCANELIMITS ALL ACTIVITIESLIMITS WORK Stef Archibald MD [address] [place] [address],[address], [place], [address] 09/20/2023 17:21:06 OBGyn Episode No OBEpisode recorded.
== END 2024-12-06 09:44 | disposition home or self-care (01) ==
PROVIDERS: PCP Physician Assistant; Visit Provider Physician Assistant
DX: Z01.818 Encounter for other preprocedural examination (principal)
CPT/HCPCS: 93005

== ENCOUNTER 2025-02-26 01:44 | Emergency (ER) | payer OTHER, SELFPAY ==
--- NOTE | ~2025-02-26 | CT_ITS ---
CT ABDOMEN AND PELVIS WITHOUT CONTRAST Clinical History: r flank pain Comparison: None Technique: Unenhanced axial images lung bases to symphysis pubis Coronal, sagittal reformats CT images acquired with automatic exposure control for dose reduction DLP: 172 mGy-cm Findings: Without intravenous contrast, sensitivity for detecting visceral parenchymal abnormalities decreased. Lung bases: Clear. Visualized heart and pericardium: Unremarkable. Liver: A few small cysts. Gallbladder: Unremarkable. Spleen: Unremarkable. Pancreas: Unremarkable. Adrenal glands: Unremarkable. Kidneys: Right kidney- Hydronephrosis. No renal stones. Left kidney- No hydronephrosis. No renal stones. Distal esophagus/stomach: Unremarkable. Small bowel loops: Normal caliber and wall thickness. Colon: Diverticula. Normal caliber and wall thickness. Normal RLQ appendix. Nodes: No enlarged nodes. Peritoneum: No ascites. No free intraperitoneal air. Urinary bladder: 5 mm stone right UVJ. Uterus: Unremarkable. Adnexa: No masses. Bones: No acute bony abnormality. Soft tissues: Small umbilical hernia with fat. Unopacified abdominal aorta: No aneurysmal dilatation. IMPRESSION: 1. Right kidney hydronephrosis due to 5 mm UVJ stone. Reviewed, dictated and finalized at location R.
[2025-02-26 01:47] VITALS: BP 120/92; PULSE 70; RESP 18; TEMP 36; O2SAT 100
--- OUTSIDE RECORDS SUMMARY | 2025-02-26 01:47 | XMS_ITS | Clinical Summary ---
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
--- OUTSIDE RECORDS SUMMARY | 2025-02-26 01:47 | XMS_ITS | Clinical Summary ---
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 Gender Identity Not on file Sexual Orientation Not on file Last Filed Vital Signs Vital Sign Reading Time Taken Comments Blood Pressure 125/77 09/04/2021 3:06 PM CDT Pulse 78 09/04/2021 3:06 PM CDT Temperature 36.3 C (97.3 F) 09/04/2021 3:06 PM CDT Respiratory Rate 20 07/27/2020 1:26 PM ADULT SERVICES LIBRARIAN Oxygen Saturation 95% 09/04/2021 3:06 PM CDT [...] on file Payer ID:Not on file Group ID:[id number] Type:RX Commercial Address: [address] [facility] [employer] PPO [id number] [facility] [employer] [id number] [employer] [address] [place] [phone]
--- NOTE | 2025-02-26 01:56 | ED_ITS ---
HPI - Female Genitourinary General Chief complaint: Urogenital-Female Stated complaint: flank pain Time Seen by Provider: 02/26/25 01:46 History of Present Illness HPI Narrative: Patient is a 5-year-old female who presents to the emergency department this evening complaining of right-sided flank pain which started yesterday at around 9:00 p.m. Patient states that the flank pain does radiate to her right groin region, states that she does have a history of kidney stones and this feels similar. Admits to pressure when urinating but denies any hematuria, denies any nausea or vomiting. No additional symptoms or concerns at this time. Related Data Home Medications ?Medication ?Instructions ?Recorded ?Confirmed ?Last Taken ?Type acetaminophen 325 mg capsule 325 mg PO Q6H PRN Pain 02/08/23 Unknown History (Tylenol) albuterol sulfate 90 mcg/actuation 1 inh inhalation Q4 H 08/24/22 02/08/23 Unknown History aerosol inhaler cholecalciferol (vitamin D3) 250 250 mcg PO WEEKLY 02/08/23 Unknown History mcg (10,000 unit) capsule atorvastatin 20 mg tablet 20 mg PO DAILY 11/13/2201/29 Unknown History Allergies Allergy/AdvReac Type Severity Reaction Status Date / Time No Known Allergies Allergy Verified 02/26/25 02:03 Review of Systems 2 Review of Systems: All systems are reviewed and are negative unless stated otherwise in the HPI. [facility] Past Medical History Medical History Mixed anxiety and depressive disorder Dyslipidemia Fracture of right tibial plateau No significant past medical history Surgical History Surgical History History of arthroscopy of right knee (~11/20/22) Debridement w/ hardware removal History of lateral meniscus repair of right knee (~11/14/20) ACL reconstruction History of section History of tonsillectomy Family History Family History Father Hypertension Diabetes mellitus Kidney disease Social History Social History Smoking status: Never smoker Alcohol intake: current Alcohol use details: occasional drinker Substance use: never Substance use type: does not use Lack of Transportation: No Lack of Food: Never True Current Housing: I Have Housing Concerned About Future Housing: No Difficulty Paying Gas/Electric Bills: YES Difficulty Paying for Meds: No Currently Unemployed: No Education: High School Diploma/GED Difficulty w/ Childcare or Family Care: No Living arrangements: with family Gender identity (if verbalized by the patient): Female Sexual Orientation (if Verbalized by the Patient): Straight or Heterosexual Spiritual care concerns: No Exam 2 Narrative: General: Alert, awake, afebrile, in moderate distress secondary to pain. HEENT: PERRL, no rhinorrhea, no post nasal drip, oropharynx clear. Neck: Trachea midline, no JVD, no lymphadenopathy. Cardiovascular: Regular rate and rhythm, no murmurs, rubs or gallops, no peripheral edema. Respiratory: Clear to auscultation bilaterally, no tachypnea, no wheezing, no rhonchi, no rubs, no respiratory distress. Abdomen: Soft, nontender, nondistended, no rebound, no guarding, no peritoneal signs. Musculoskeletal: No joint swelling or deformity, normal muscle tone. Skin: No rashes or petechia, no signs of infection. Psychiatric: Alert and oriented, normal behavior and judgment for situation. Neurological: Alert and oriented to person, place, and time. Follows all commands. No focal deficits, speech is clear and fluent. Course Vital Signs Vital signs: Vital Signs Temperature 96.8 F L 02/26/25 01:47 Pulse Rate 70 02/26/25 01:47 Respiratory Rate 18 02/26/25 01:47 Blood Pressure 120/92 H 02/26/25 01:47 Pulse Oximetry 100 02/26/25 01:47 Oxygen Delivery Room Air 02/26/25 01:47 Temperature 96.8 F L 02/26/25 01:47 Pulse Rate 02/26/25 01:47 Respiratory Rate 18 02/26/25 01:47 Blood Pressure 120/92 H 02/26/25 01:47 Pulse Oximetry 100 02/26/25 01:47 Oxygen Delivery Room Air 02/26/25 01:47 MDM - Female Genitourinary MDM Narrative Medical decision making narrative: The patient was evaluated by myself in the emergency department. History is obtained from patient who is an independent historian and physical exam was performed. External medical records were reviewed at this time. IV was established and pertinent tests were ordered. Patient was administered 4 mg IV morphine 4 mg IV Zofran and 1 L IV fluid bolus with normal saline with improvement of her pain. Laboratory results obtained revealing no acute process. Urinalysis revealed 3+ blood with 51-100 RBCs otherwise no evidence of UTI. Imaging studies obtained included CT abdomen pelvis without IV contrast which was independently interpreted by me revealing a 5 mm right UVJ stone with mild right hydro ureteral nephrosis, which is pending final radiology interpretation. Differential diagnosis considerations include renal colic, kidney stone, pyelonephritis/UTI/cystitis, appendicitis. Comorbidities impacting this visit include history of kidney stones. I have evaluated and discussed social determinants of health with the patient that could potentially impact subsequent diagnosis and treatment plans. On repeat assessment of the patient, reevaluation revealed that the patient is doing well and is in no acute distress. Patient symptoms have improved since she arrived to our emergency department. Repeat vital signs were all reviewed and noted to be stable. Differential diagnosis and treatment plan were discussed with the patient at bedside. Patient agrees with discussion and after shared medical decision making agrees with discharge. All questions were answered to the patient's satisfaction. Patient will follow up with Urology in 3-5 days. Scripts for ibuprofen, Flomax, [place] and Zofran was sent to patient's pharmacy to use as prescribed to help passed her kidney stone. Patient was provided with strict return precautions and instructed to return to the emergency department if any new or worsening symptoms develop. The patient was discharged in stable condition. Lab Data 02/26/25 02:05 02/26/25 02:05 Labs: Lab Results 02/26/25 02/26/25 Range/Units 02:05 03:39 WBC 8.8 (4.5-10.0) K/mm3 RBC 4.65 (4.2-5.4) M/mm3 Hgb 13.8 (12.0-15.0) g/dL Hct 43.0 (37.0-47.0) % MCV 92.5 (80-100) fl MCH 29.7 (26-34) pg MCHC 32.1 (32-36) g/dl RDW 13.3 (11.5-14.5) % Plt Count 280 (150-375) k/mm3 MPV 10.0 (7.4-10.4) fl Immature Gran % (Auto) 0.2 (0-0.5) % Neut % (Auto) 51.8 (45.5-73.1) % Lymph % (Auto) 36.4 (18.3-44.2) % [place] % (Auto) 9.2 H (2.6-8.5) % Eos % (Auto) 1.7 (0-4.4) % Baso % (Auto) 0.7 (0.2-1.2) % Lymph # (Auto) 3.21 H (0.9-3.2) K/mm3 [place] # (Auto) 0.8 H (0.1-0.6) K/mm3 Eos # (Auto) 0.2 (0-0.3) K/mm3 Baso # (Auto) 0.1 (0.0-0.1) K/mm3 Abs Immat Gran (auto) 0.02 (0.00-0.031) K/mm3 Absolute Neuts (auto) 4.6 (1.3-6.7) K/mm3 Absolute Nucleated RBC 0.000 (0.0-0.012) K/mm3 Nucleated RBC % 0.0 (0.0-0.2) % Sodium 140 (137-145) mmol/L Potassium 3.4 (3.4-5.0) mmol/L Chloride 105 (98-107) mmol/L Carbon Dioxide 27 (22-30) mmol/L Anion Gap 8 (4-12) mmol/L BUN 17 (7-17) mg/dL Creatinine 0.66 L (0.7-1.0) mg/dL Estim Creat Clear Calc Not Reportable Estimated GFR > 60 (59 - ) Glucose 115 H (65-110) mg/dL Calcium 9.1 (8.4-10.2) mg/dL Magnesium 2.0 (1.6-2.3) mg/dL Total Bilirubin 0.4 (0.2-1.3) mg/dL AST 24 (14-36) U/L ALT 20 (6-35) U/L Alkaline Phosphatase 81 (38-126) U/L Total Protein 7.1 (6.3-8.2) g/dL Albumin 4.1 (3.5-5.1) g/dL Lipase 55 (23-300) U/L Urine Color Yellow (Yellow) Urine Appearance Clear (Clear) Urine pH 5.5 (5.0-9.0) Ur Specific [place] 1.021 (1.001-1.035) Urine Protein Negative (Negative) mg/dL Urine Glucose (UA) Negative (Negative) mg/dL Urine Ketones Trace H (Negative) mg/dL Ur Blood (Man) 3+ H (Negative) Urine Nitrate Negative (Negative) Urine Bilirubin Negative (Negative) Urine Urobilinogen 1.0 (<2.0) mg/dL Leukocyte Esterase Rfl Trace H (Negative) INGRID/UL Urine RBC 51-100 H (0-2) /hpf Urine WBC 0-5 (0-3) /hpf Ur Squamous Epith Cells None seen (Few) /hpf Urine Bacteria None seen /hpf Urine Casts 0-2 Discharge Plan Discharge Clinical Impression: Right flank pain, Kidney stone on right side Patient Disposition: Home Condition: Improved Instructions: Antibiotic Form, Kidney Stones (ED) Additional Instructions: Please follow-up with urologist your provided with today within the next 3-5 days. Return the emergency department if any new or worsening symptoms develop. Use the prescribed medications as instructed to help passed 2 kidney stone. Patient Language: [place] Prescriptions: New hydrocodone-acetaminophen 5-325 mg tablet 1 tablet PO Q8H PRN (Reason: pain) Qty: 14 0RF ondansetron 4 mg tablet,disintegrating 4 mg PO Q8H PRN (Reason: nausea and vomiting) Qty: 14 0RF tamsulosin [Flomax] 0.4 mg capsule 0.4 mg PO DAILY Qty: 14 0RF ibuprofen 400 mg tablet 400 mg PO TID PRN (Reason: pain) Qty: 20 0RF No Action albuterol sulfate 90 mcg/actuation HFA aerosol inhaler 1 inh inhalation Q4H cholecalciferol (vitamin D3) 250 mcg (10,000 unit) capsule 250 mcg PO WEEKLY acetaminophen [Tylenol] 325 mg capsule 325 mg PO Q6H PRN (Reason: Pain) atorvastatin 20 mg tablet 20 mg PO DAILY carbamazepine [Carbatrol] 100 mg capsule, ER multiphase 12 hr 100 mg PO Q12H Qty: 30 0RF acyclovir 800 mg tablet 800 mg PO Q4H 7 Days Qty: 42 2RF oxycodone-acetaminophen [Endocet] 5-325 mg tablet 1 tablet PO Q8H PRN (Reason: pain, severe) Qty: 12 0RF oxycodone-acetaminophen 5-325 mg tablet 1 - 2 tablet PO Q4-6H MDD 6 tablets PRN (Reason: pain) Qty: 30 0RF Follow-up/Referrals: Ashley,GABI Gomez [Primary Care Provider, Family Practice] Elie Barnes MD [Physician, Urology] - 3 Days Time of Disposition: 03:24
[2025-02-26] MEDS: ONDANSETRON INJ 4 MG/2 ML VIAL IV PUSH (02:01)
[2025-02-26] MEDS: SODIUM CHLORIDE 0.9% IV 1,000 ML 999 ML IV CONT ×2 (02:01→03:40)
[2025-02-26] MEDS: MORPHINE SULFATE (*CRX) 4 MG/ML INJ IV PUSH (02:01)
[2025-02-26 02:11] LABS: Hematocrit 43.0 % (37.0-47.0); Hemoglobin 13.8 g/dL (12.0-15.0); Immature Granulocyte Percent A 0.2 % (0-0.5); Lymphocytes Absolute Auto 3.21 K/mm3 (0.9-3.2); Mean Corpuscular HGB Conc 32.1 g/dl (32-36); Mean Corpuscular Hemoglobin 29.7 pg (26-34); Mean Corpuscular Volume 92.5 fl (80-100); Nucleated Red Blood Cells Absolute Auto 0.000 K/mm3 (0.0-0.012); Nucleated Red Blood Cells Perc 0.0 % (0.0-0.2); Platelet Count Result 280 k/mm3 (150-375); Red Blood Count 4.65 M/mm3 (4.2-5.4); White Blood Count 8.8 K/mm3 (4.5-10.0)
[2025-02-26 02:27] LABS: Alanine Aminotransferase 20 U/L (6-35); Albumin Level 4.1 g/dL (3.5-5.1); Alkaline Phosphatase 81 U/L (38-126); Anion Gap 8 mmol/L (4-12); Aspartate Amino Transferase 24 U/L (14-36); Bilirubin,Total 0.4 mg/dL (0.2-1.3); Blood Urea Nitrogen 17 mg/dL (7-17); Calcium 9.1 mg/dL (8.4-10.2); Carbon Dioxide 27 mmol/L (22-30); Chloride 105 mmol/L (98-107); Estimated Glomerular Filt Rate > 60; Glucose 115 mg/dL (65-110); Lipase 55 U/L (23-300); Magnesium 2.0 mg/dL (1.6-2.3); Potassium 3.4 mmol/L (3.4-5.0); Sodium 140 mmol/L (137-145); Total Protein 7.1 g/dL (6.3-8.2)
[2025-02-26 02:33] VITALS: O2SAT 95
[2025-02-26 02:45] VITALS: O2SAT 98
[2025-02-26 03:00] VITALS: O2SAT 97
[2025-02-26 03:24] VITALS: O2SAT 98
[2025-02-26 03:30] VITALS: O2SAT 100
[2025-02-26] MEDS: KETOROLAC 15 MG/ML VIAL (*BKC) IV PUSH (03:39)
[2025-02-26 03:51] LABS: Add Urine Microscopic? YES; Appearance Urine Clear (Clear); Glucose Urine UA Negative (Negative); Leukocyte Esterase Ur Trace LEU/UL (Negative); Nitrate Urine Negative (Negative); Non Pathogenic Casts 0-2; Specific Grav Ur 1.021 (1.001-1.035)
== END 2025-02-26 04:11 | disposition home or self-care (01) ==
PROVIDERS: Emergency Provider Emergency Medicine; PCP Physician Assistant
DX: N13.2 Hydronephrosis with renal and ureteral calculous obstruction (principal)
CPT/HCPCS: 36415; 74176; 80053; 81001; 83690; 83735; 85025; 96361; 96374; 96375; 99284; J1885; J2270; J2405; J7030